=== PATIENT | male | born 1970 | race Caucasian/White ===

== ENCOUNTER 2024-04-26 09:47 | Outpatient (CLI) | payer BC, SELFPAY ==
[2024-04-26 16:07] LABS: Alanine Aminotransferase 34 U/L (6-50); Albumin Level 4.3 g/dL (3.5-5.1); Alkaline Phosphatase 84 U/L (38-126); Anion Gap 7 mmol/L (4-12); Aspartate Amino Transferase 79 U/L (17-59); Bilirubin,Total 0.6 mg/dL (0.2-1.3); Blood Urea Nitrogen 22 mg/dL (9-20); Calcium 9.3 mg/dL (8.4-10.2); Carbon Dioxide 33 mmol/L (22-30); Chloride 102 mmol/L (98-107); Cholesterol 172 mg/dL (0-200); Estimated Glomerular Filt Rate > 60; Glucose 94 mg/dL (65-110); HDL Direct 39 mg/dL; Potassium 4.3 mmol/L (3.4-5.0); Sodium 142 mmol/L (137-145); Triglycerides 139 mg/dL (<150)
[2024-04-26 16:18] LABS: LDL Cholesterol Direct 106 mg/dL
[2024-04-26 16:37] LABS: Prostate Specific Antigen 2.7 ng/mL (< OR = 4.0)
[2024-04-26 18:09] LABS: Hemoglobin A1C 5.7 % (<5.7)
== END 2024-04-26 09:48 | disposition home or self-care (01) ==
PROVIDERS: PCP Family Medicine; Visit Provider Family Medicine
DX: E78.2 Mixed hyperlipidemia (principal)
CPT/HCPCS: 36415; 80053; 80061; 83036; 84153; 84443

== ENCOUNTER 2024-04-27 14:50 | Outpatient (CLI) | payer BC, SELFPAY ==
--- NOTE | ~2024-04-27 | CT_ITS ---
EXAMINATION:CT lung screening DATE: 04/27/2024 15:02 INDICATION: Personal history of nicotine dependence. Smoker who quit 10 years ago with 35 pack year h istory. TECHNIQUE: Computed tomography (CT) of the chest was performed without intravenous contrast. Automate d exposure control and iterative reconstruction technique were employed. The dose-length product (DLP ) was 284.16 mGy-cm. COMPARISON: None. FINDINGS: Calcified pulmonary nodules and calcified hilar mediastinal lymph nodes are consistent with old granulomatous disease. There is mild atelectasis bilaterally. No pleural effusion. The heart siz e is normal. There are coronary artery calcifications. No pericardial effusion. Calcifications in the spleen are consistent with old granulomatous disease. There is mild thoracic spondylosis. There is m ild chronic anterior wedging of multiple lower thoracic vertebral bodies. IMPRESSION: 1. Lung-RADS category 1: Negative. Continue annual screening with noncontrast low-dose chest CT in 12 months. Reviewed, dictated and finalized at location E. IMPRESSION: 1. Lung-RADS category 1: Negative. Continue annual screening with noncontrast l ow-dose chest CT in 12 months.
== END 2024-04-27 14:51 ==
PROVIDERS: PCP Family Medicine; Visit Provider Family Medicine
DX: Z12.2 Encounter for screening for malignant neoplasm of respiratory organs (principal); Z87.891 Personal history of nicotine dependence
CPT/HCPCS: 71271

== ENCOUNTER 2024-07-10 10:57 | Outpatient (CLI) | payer BC, SELFPAY ==
[2024-07-10 13:13] LABS: Alanine Aminotransferase 34 U/L (6-50); Albumin Level 4.1 g/dL (3.5-5.1); Alkaline Phosphatase 90 U/L (38-126); Anion Gap 7 mmol/L (4-12); Aspartate Amino Transferase 65 U/L (17-59); Bilirubin,Total 0.4 mg/dL (0.2-1.3); Blood Urea Nitrogen 18 mg/dL (9-20); Calcium 8.9 mg/dL (8.4-10.2); Carbon Dioxide 33 mmol/L (22-30); Chloride 100 mmol/L (98-107); Estimated Glomerular Filt Rate > 60; Glucose 109 mg/dL (65-110); Potassium 4.1 mmol/L (3.4-5.0); Sodium 140 mmol/L (137-145)
[2024-07-10 15:57] LABS: Hepatitis B Surface Antigen Negative (Negative)
[2024-07-10 16:02] LABS: HAV RESULT Negative (Negative); Hepatitis B Core IgM Result Negative (Negative)
[2024-07-10 16:14] LABS: Hepatitis C Virus Antibody Negative (Negative)
== END 2024-07-10 10:58 | disposition home or self-care (01) ==
LOC: ANHGOSHLAB 10:59
PROVIDERS: PCP Family Medicine; Visit Provider Family Medicine
DX: R74.8 Abnormal levels of other serum enzymes (principal)
CPT/HCPCS: 36415; 80053; 80074

== ENCOUNTER 2024-08-29 09:45 | Outpatient (CLI) | payer BC, SELFPAY ==
--- NOTE | 2024-09-17 11:44 | P.SLEEP_ITS ---
Sleep Study Date of Study: 08/29/24 Ordering Provider: Caitlyn Joaquin DO Interpreting Physician: Caitlyn Joaquin DO Sleep Study Type: Split Polysomnogram Height: 1.78 m Weight: 117.48 kg Body Mass Index: 37.1 Neck Circumference (inches): 18 [place]: 5 Reason for Sleep Study The patient had a PSG on 10/14/2009 at [facility] that showed an overall AHI of 10.9 with desaturation down to 81%. He had a PAP Titration on 07/16/2011 but no optimal pressure was found due to poor sleep efficiency. He had a repeat PAP Titration on 08/27/2011 where the optimal pressure of 8 cm H2O. The patient states that his machine eventually stopped working as well so he started using a CPAP machine from his neighbor. His neighbor's machine was set to AutoPAP 10-20 cm H2O with EPR of 3. His compliance data shows a residual AHI of 3.9 with mostly centrals. The patient feels as though the pressure is too high. Sleep History The patient is a 54-year-old male with obstructive sleep apnea that had a sleep study ordered to requalify for CPAP. The patient rarely awakens from sleep short of breath. He rarely awakens at night with heartburn, belching or cough. He constantly snores and is frequently loud enough that others complain. He occasionally has trouble sleeping when he has a cold. He occasionally wakes up gasping for air throughout the night. He frequently has breathing problems at night observed by himself or others. He rarely sweats excessively at night. He rarely has heart palpitations or irregular heartbeats during the night. He rarely falls asleep during the day and rarely falls asleep while driving. He denies sleep paralysis and cataplexy. He denies having trouble at school or work due to sleepiness. He occasionally experiences vivid dreamlike scenes upon awakening or falling asleep. He denies feeling afraid of going to sleep. He rarely has nightmares. He occasionally remembers his dreams. He rarely has thoughts racing through his mind. He rarely feels sad, depressed or anxious. He rarely has muscular tension. He rarely notices parts of his body jerk. He occasionally kicks during the night. He occasionally has crawling and aching feelings in his legs and occasionally has leg pain during the night. He rarely grinds his teeth during sleep and never awakens with morning jaw pain. He is rarely bothered by pain during the day and rarely awakened by pain during the night. He rarely wakes up feeling stiff in the morning. He rarely wakes up with sore or achy muscles. He occasionally wakes up with pain in the neck, spine and other joints. He goes to bed 8:00 a.m. on weekdays and at 2:00 a.m. on the weekends. It takes him 5 minutes to fall asleep. He wakes up twice throughout the night to urinate and get a drink. He is able to fall back asleep within a few minutes. He wakes up at 3:00 p.m. on weekdays and at 10:00 a.m. on the weekends. He typically gets 6-8 hours of sleep per night. He will stay in bed for a few minutes after waking up in the morning. He currently lives with his and child. 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 The patient will switch to a day schedule on the weekends. He denies consuming any caffeinated beverages within 2 hours of bedtime. He denies engaging in physical exercise before bedtime. He will watch television before falling asleep. He denies taking naps in afternoon to evening. He consumes 2 caffeinated beverages per day. He is a former smoker. He consumes 3 alcoholic beverages per week. He denies recreational drug use. [facility] Surgical History Surgical History History of excision of pilonidal cyst Family History Family History Father Hypertension Alcohol abuse Grandparent Cerebrovascular accident Diabetes mellitus Social History Social History Smoking packs per day: 1 Smoking cigarettes per day: 20.0 Years smoked: 20 Smoking pack-years: 20.00 Smoking status: Former smoker Tobacco type: cigarettes Alcohol intake: current Drinks per week: 2 Current Housing: Decline to Answer Concerned About Future Housing: Decline to Answer Difficulty Paying Gas/Electric Bills: Decline to Answer Difficulty Paying for Meds: Decline to Answer Currently Unemployed: Decline to Answer Education: Decline to Answer Difficulty w/ Childcare or Family Care: Decline to Answer Living arrangements: with family Spiritual care concerns: No Medications Home Medications Medication Instructions Recorded Confirmed Type B-complex with vitamin C 1 cap PO DAILY 04/25/24 09/12/24 History aspirin 81 mg tablet,delayed 81 mg PO DAILY 04/25/24 09/12/24 History release (Adult Aspirin Regimen) cholecalciferol (vitamin D3) 125 125 mcg PO DAILY 04/25/24 09/12/24 History mcg (5,000 unit) capsule hydrochlorothiazide 12.5 mg capsule 12.5 mg PO DAILY 04/25/24 09/12/24 History xqxfvnbe-eh-gchnx 300 mcg-K 60 1 tablet PO DAILY 04/25/24 09/12/24 History mcg-lycop 600 mcg-lutein 300 mcg tablet (Centrum Silver Men) omega 4-ujf-dhu-fish oil 100 1 cap PO DAILY 04/25/24 09/12/24 History mg-160 mg-1,000 mg capsule (Fish Oil) sildenafil 100 mg tablet 100 mg PO DAILY PRN Erectile 04/25/24 09/12/24 History Dysfunction paroxetine HCl 10 mg tablet (Paxil) 10 mg PO DAILY #90 tabs 08/15/24 09/12/24 Rx simvastatin 40 mg tablet 40 mg PO DAILY #90 tabs 09/10/24 09/12/24 Rx Sleep Procedure A full night polysomnogram using the [employer]dtap multi-channel system recorded the standard physiologic parameters including EEG, EOG, submentalis EMG, anterior tibialis EMG, EKG, body position, nasal and oral airflow using nasal pressure sensor and thermistor.? Respiratory parameters of chest and abdominal movements were recorded with Respiratory Inductance Plethysmography belts. Oxygen saturation was recorded by pulse oximetry. Video monitoring was also performed. Sleep stages, periodic limb movements, and EEG arousals were scored in 30 second epochs according to the criteria of the AASM Scoring Manual. The Apnea-Hypopnea Index was calculated using CMS guidelines for definition of hypopnea with 4% O2 desaturations while scoring respiratory events. Sleep Architecture During the diagnostic portion of the study, the total recording time was 136.7 minutes. The total sleep time was 128.5 minutes. Sleep latency was 1.1 minutes.? REM sleep did not occur on this portion of the study. Sleep Efficiency was 94.0%. The patient had 5 awakenings for an awakening index of 2.3. Wake after sleep onset time was 7.0 minutes. The patient spent 26.0 minutes, 20.2% of total sleep time in Stage N1. The patient spent 102.5 minutes, 79.8% in Stage N2. The patient spent 0.0 minutes, 0.0% in Stage N3. The patient spent 0.0 minutes, 0.0% in Stage REM sleep. At 12:01:46 AM the patient was placed on PAP treatment and was titrated at p ressures ranging from 5 cm H20 up to 17/12 cm H20 with a back up rate of 10 breaths/min. During the treatment portion of the study, the total recording time was 421.1 minutes.? The total sleep time was 396.5 minutes. Sleep latency was 1.5 minutes. REM latency was 2.5 minutes. Sleep Efficiency was 94.2%. Wake after Sleep Onset time was 23.5 minutes. The patient spent 50.0 minutes, 12.6% of total sleep time in Stage N1. The patient spent 268.0 minutes, 67.6% in Stage N2. The patient spent 0.0 minutes, 0.0% in Stage N3. The patient spent 78.5 minutes, 19.8% in Stage REM. Respiratory Analysis During the diagnostic portion of the study, the patient had 44 hypopneas, 28 obstructive apneas, 19 mixed apneas, and 2 central apneas for an overall Apnea Hypopnea Index of 43.4 events per hour. The REM Apnea Hypopnea Index was 0. The NREM Apnea Hypopnea Index was 43.4. The patient had a Central Apnea Hypopnea Index of 0.9. There was no evidence of Bridger-Irby Respirations. During the treatment portion of the study, the patient had 97 hypopneas, 1 obstructive apnea and 68 central apneas for an overall Apnea Hypopnea Index of 25.1 events per hour. The REM Apnea Hypopnea Index was 10.7. The NREM Apnea Hypopnea Index was 28.7. The patient had a Central Apnea Hypopnea Index of 10.3. The patient developed Rbidger-Irby Respirations during the titration portion of the study. The cycle length was 48.4 seconds. The circulation time was 23.5 seconds. The patient was started on CPAP 5 cm H2O and titrated to BPAP 17/12 cm H2O with back-up rate of 10 breaths/min. A back-up rate was added when the patient was titrated to BPAP 12/6 cm H2O due to an increase in central apneas. The patient was able to fall asleep starting CPAP 5 cm H2O. The patient was able to achieve REM sleep starting CPAP 5 cm H2O. The patient was able to achieve a residual AHI less than 5 with both NREM and REM sleep on CPAP 5 cm H2O. On CPAP 5 cm H2O, the patient spent 16 minutes in NREM and 23.5 minutes in REM with 3 hypopneas, resulting in an AHI of 4.6. The patient had a sleep efficiency of 95.2% on this pressure setting. When the patient was titrated to 7 cm H2O, he started to develop central apneas. The frequency of central apneas increased as the pressure was increased. When the patient was switched to BPAP, the central apneas increased. Arousals During the diagnostic portion of the study, there were a total of 108 arousals for an arousal index of 50.4.? There were 50 respiratory arousals for an index o f 23.3. There were 18 periodic limb movement arousals for an index of 8.4.? There were 4 isolated limb movement arousals for an index of 1.9. There were 36 spontaneous arousals for an index of 16.8. During the treatment portion of the study, there were a total of 116 arousals for an index of 17.6.? There were 8 respiratory arousals for an index of 1.2. There were 6 periodic limb movement arousals for an index of 0.9.? There were 19 isolated limb movement arousals for an index of 2.9. There were 83 spontaneous arousals for an index of 12.6. Periodic Limb Movements During the diagnostic portion of the study, the patient had 11 isolated limb movements with an index of 5.1. The patient had 69 periodic limb movements with an index of 32.2, which is elevated (normal < 15). The patient had a total of 80 limb movements with a total limb movement index of 37.4. During the treatment portion of the study, the patient had 36 isolated limb movements with an index of 5.4. The patient had 21 periodic limb movements with an index of 3.2. The patient had a total of 57 limb movements with a total limb movement index of 8.6. Oximetry Data During the diagnostic portion of the study, the patient had an average oxygen saturation of 93.3% in wake with a minimum oxygen saturation of 87% and a maximum oxygen saturation of 97%. The patient had an average oxygen saturation of 92.0% in sleep with a minimum oxygen saturation of 82.0% and a maximum oxygen saturation of 98.0%. The patient had 92 oxygen desaturations resulting in an Oxygen Desaturation Index of 43.0. The patient spent 7 minutes, 5.1% of total sleep time with an oxygen saturation less than 88%. During the treatment portion of the study, the patient had an average oxygen saturation of 93.6% in wake with a minimum oxygen saturation of 84.0% and a maximum oxygen saturation of 97.0%. The patient had an average oxygen saturation of 93.3% in sleep with a minimum oxygen saturation of 86.0% and a maximum oxygen saturation of 98.0%. The patient had 168 oxygen desaturations resulting in an Oxygen Desaturation Index of 25.4. The patient spent 2.5 minutes, 0.6% of total sleep time with an oxygen saturation less than 88%. Snoring Profile Moderate to loud snoring was present continuously during the baseline portion of the study. The patient's snoring resolved once he was started on PAP therapy. Cardiac Profile The EKG lead showed normal sinus rhythm. No arrhythmias or PVCs were seen. During the diagnostic portion of the study, the average pulse rate was 64.1 bpm.? The minimum pulse rate was 54.0 bpm. The maximum pulse rate was 78.0 bpm. During the treatment portion of the study, the average pulse rate was 60.1 bpm.? The minimum pulse rate was 52.0 bpm. The maximum pulse rate was 78.0 bpm. EEG Profile No signs of seizure activity seen. Assessment and Plan Assessment and Plan (1) DOLORES (obstructive sleep apnea): Code(s): G47.33 - Obstructive sleep apnea (adult) (pediatric) Status: Acute Assessment and Plan: In the diagnostic portion of the study, the patient had AHI 43.4 with desaturation down to 82%. This is consistent with severe sleep apnea. The patient was started on CPAP 5 cm H2O and titrated to BPAP 17/12 cm H2O with back-up rate of 10 breaths/min. I recommend that the patient be prescribed R esmed CPAP 7 cm H2O, size medium Resmed AirFit P30i nasal pillows, CPAP filters/tubing and heated humidity. This should be used with all episodes of sleep.? Compliance should be reviewed within 31-90 days of starting therapy for usage greater than 4 hours per night greater than 70% of the nights. The patient should be asked about symptoms such as?excessive daytime sleepiness, quality of sleep, decreased nocturia, increased?mental functioning such as memory, mood, and concentration. Data The data obtained during this sleep study is adequate for interpretation. Certification This sleep study has been reviewed by a board certified sleep medicine physician.
[2024-09-17 13:24] VITALS: BMI 37.1
== END 2024-08-30 07:30 | disposition home or self-care (01) ==
PROVIDERS: PCP Family Medicine; Visit Provider Family Medicine
DX: G47.33 Obstructive sleep apnea (adult) (pediatric) (principal)
CPT/HCPCS: 95811

== ENCOUNTER 2024-10-17 11:31 | Outpatient (CLI) | payer BC, SELFPAY ==
[2024-10-17 12:53] LABS: Alanine Aminotransferase 159 U/L (6-50); Albumin Level 3.9 g/dL (3.5-5.1); Alkaline Phosphatase 98 U/L (38-126); Anion Gap 4 mmol/L (4-12); Aspartate Amino Transferase 130 U/L (17-59); Bilirubin,Total 0.6 mg/dL (0.2-1.3); Blood Urea Nitrogen 18 mg/dL (9-20); Calcium 8.7 mg/dL (8.4-10.2); Carbon Dioxide 36 mmol/L (22-30); Chloride 102 mmol/L (98-107); Estimated Glomerular Filt Rate > 60; Glucose 97 mg/dL (65-110); Potassium 3.3 mmol/L (3.4-5.0); Sodium 142 mmol/L (137-145)
== END 2024-10-17 11:32 | disposition home or self-care (01) ==
PROVIDERS: PCP Family Medicine; Visit Provider Family Medicine
DX: R74.8 Abnormal levels of other serum enzymes (principal)
CPT/HCPCS: 36415; 80053

== ENCOUNTER 2024-11-13 11:27 | Outpatient (CLI) | payer BC, SELFPAY ==
[2024-11-13 12:26] LABS: Alanine Aminotransferase 27 U/L (6-50); Albumin Level 4.1 g/dL (3.5-5.1); Alkaline Phosphatase 82 U/L (38-126); Anion Gap 1 mmol/L (4-12); Aspartate Amino Transferase 28 U/L (17-59); Bilirubin,Total 0.8 mg/dL (0.2-1.3); Blood Urea Nitrogen 16 mg/dL (9-20); Calcium 9.2 mg/dL (8.4-10.2); Carbon Dioxide 33 mmol/L (22-30); Chloride 106 mmol/L (98-107); Cholesterol 280 mg/dL (0-200); Estimated Glomerular Filt Rate > 60; Glucose 95 mg/dL (65-110); HDL Direct 39 mg/dL; Sodium 140 mmol/L (137-145); Triglycerides 175 mg/dL (<150)
[2024-11-13 12:37] LABS: LDL Cholesterol Direct 181 mg/dL
[2024-11-13 13:53] LABS: Hepatitis B Surface Antigen Negative (Negative)
[2024-11-13 13:59] LABS: HAV RESULT Negative (Negative); Hepatitis B Core IgM Result Negative (Negative)
[2024-11-13 14:10] LABS: Hepatitis C Virus Antibody Negative (Negative)
== END 2024-11-13 11:28 | disposition home or self-care (01) ==
LOC: ANHGOSHLAB 11:28
PROVIDERS: PCP Family Medicine; Visit Provider Family Medicine
DX: E78.5 Hyperlipidemia, unspecified (principal); R74.8 Abnormal levels of other serum enzymes; E87.6 Hypokalemia
CPT/HCPCS: 36415; 80053; 80061; 80074

== ENCOUNTER 2025-02-19 09:19 | Outpatient (CLI) | payer BC, SELFPAY ==
--- OUTSIDE RECORDS SUMMARY | 2025-02-19 10:07 | XMS_ITS | Data Portability ---
Author Organization [facility] Main Office Address [address] [place] [address] Assessment No assessment recorded. Plan of Treatment Reminders Order Date Submit Date Provider Last Modified By Organization Details Last Modified Time Details Appointments None recorded. Lab PSA, serum or plasma 2022 023 CARMEN Not available 3 02:44:45 BMP, serum or plasma 2022 023 CARMEN Not available 3 19:30:24 glycohemogl obin, total, blood 2022 023 CARMEN Not available 3 20:01:12 lipid panel, serum 2022 023 CARMEN Not available 3 19:30:29 hepatic function panel, serum 2022 023 CARMEN Not available 3 19:30:34 CBC w/ auto diff 2022 023 CARMEN Not available 3 19:39:13 Referral gastroenter ologist referral 2022 023 [email or web address] 3 Gary nielson MD, [address], [facility] [address], [place], [address], 3 10:48:30 Procedures None recorded. Surgeries None recorded. Imaging None recorded. Medication Orders tadalafil 20 mg tablet 2022 023 [place] [facility][id number], [address], [place], [place], [id number], 3 09:02:36 phentermine 37.5 mg tablet 2022 023 [facility] #[id number], [address], [place], [place], [id number], 3 09:02:37 hydrochloro thiazide 12.5 mg tablet 2022 023 [facility] #[id number], [address], [place], [place], [id number], 3 11:09:34 simvastatin 40 mg tablet 2022 023 [facility] #[id number], [address], [place], [place], [id number], 3 11:07:10 Patient TargetsNo targets recorded. Patient InstructionsNo instructions recorded. Reason for Referral Steam [employer] Referral for Screening for malignant neoplasm of colon Referring Physician: Nasrin Polanco, Family Medicine, Encounter Date: 06/22/2023 Results Created Date Observation Date Name Description Value Unit Range Abnormal Flag Note LastModifiedBy Organization Detail LastModifiedTime 11/02/20 21 11/02/2021 CBC/C OMPLE TE BLD COUNT W/DIF F white blood cells 7.3 x10'3 /uL 4.2-10 .8 Not Available [facility] (Lab) [address] [place], [address], 11/02/2021 19:56:47 11/02/20 21 11/02/2021 CBC/C OMPLE TE BLD COUNT W/DIF F red blood cells 5.27 x10'6 /uL 4.10-5 .80 Not Available [facility] (Lab) [address] [place], [address], 11/02/2021 19:56:47 11/02/20 21 11/02/2021 CBC/C OMPLE TE BLD COUNT W/DIF F hemoglobin 15.0 g/dL 13.2-1 7.0 Not Available [facility] (Lab) [address] [place], [address], 11/02/2021 19:56:47 11/02/20 21 11/02/2021 CBC/C OMPLE TE BLD COUNT W/DIF F hematocrit 46.2 % 39.3-5 0.0 Not Available [facility] (Lab) [address] [place], [address], 11/02/2021 19:56:47 11/02/20 21 11/02/2021 CBC/C OMPLE TE BLD COUNT W/DIF F mean red cell volume 87.7 fL 80.0-9 7.0 Not Available [facility] (Lab) [address] [place], [address], 11/02/2021 19:56:47 11/02/20 21 11/02/2021 CBC/C OMPLE TE BLD COUNT W/DIF F mean red cell hemoglobin 28.5 pg 27.0-3 3.0 Not Available [facility] (Lab) [address] [place], [address], 11/02/2021 19:56:47 11/02/20 21 11/02/2021 CBC/C OMPLE TE BLD COUNT W/DIF F mean RBC HGB concentratio n 32.5 g/dL 31.0-3 6.0 Not Available [facility] (Lab) [address] [place], [address], 11/02/2021 19:56:47 11/02/20 21 11/02/2021 CBC/C OMPLE TE BLD COUNT W/DIF F red cell distribution width 12.5 % 11.8-1 5.5 Not Available [facility] (Lab) [address] [place], [address], 11/02/2021 19:56:47 11/02/20 21 11/02/2021 CBC/C OMPLE TE BLD COUNT W/DIF F platelets 130 x10'3 /uL 150-40 0 low Not Available [facility] (Lab) [address] [place], [address], 11/02/2021 19:56:47 11/02/20 21 11/02/2021 CBC/C OMPLE TE BLD COUNT W/DIF F mean platelet volume 12.5 fL 9.0-12 .4 high Not Available [facility] (Lab) [address] [place], [address], 11/02/2021 19:56:47 11/02/2011/02/2021 CBC/C OMPLE TE BLD COUNT W/DIF F neutrophils 54.2 % 39.0-7 2.0 Not Available [facility] (Lab) [address] [place], [address], 11/02/2021 19:56:47 11/02/20 21 11/02/2021 CBC/C OMPLE TE BLD COUNT W/DIF F lymphocytes 34.0 % 16.0-4 7.0 Not Available [facility] (Lab) [address] [place], [address], 11/02/2021 19:56:47 11/02/2011/02/2021 CBC/C OMPLE TE BLD COUNT W/DIF F monocytes 8.3 % 5.0-12 .0 Not Available [facility] (Lab) [address] [place], [address], 11/02/2021 19:56:47 11/02/20 21 11/02/2021 CBC/C OMPLE TE BLD COUNT W/DIF F eosinophils 2.6 % 1.0-7. 0 Not Available [facility] (Lab) [address] [place], [address], 11/02/2021 19:56:47 11/02/20 21 11/02/2021 CBC/C OMPLE TE BLD COUNT W/DIF F basophils 0.6 % 0.0-2. 0 Not Available [facility] (Lab) [address] [place], [address], 11/02/2021 19:56:47 11/02/20 21 11/02/2021 CBC/C OMPLE TE BLD COUNT W/DIF F immature granulocytes 0.3 % 0.00-0 .50 Not Available [facility] (Lab) [address] [place], [address], 11/02/2021 19:56:47 11/02/20 21 11/02/2021 CBC/C OMPLE TE BLD COUNT W/DIF F neutrophils, absolute count 3.94 x10'3 /uL 1.5-8. 0 Not Available [facility] (Lab) [address] [place], [address], 11/02/2021 19:56:47 11/02/20 21 11/02/2021 CBC/C OMPLE TE BLD COUNT W/DIF F lymphocytes, absolute count 2.47 x10'3 /uL 1.07-3 .43 Not Available [facility] (Lab) [address] [place], [address], 11/02/2021 19:56:47 11/02/20 21 11/02/2021 CBC/C OMPLE TE BLD COUNT W/DIF F monocytes, absolute count 0.60 x10'3 /uL 0.29-0 .99 Not Available [facility] (Lab) [address] [place], [address], 11/02/2021 19:56:47 11/02/20 21 11/02/2021 CBC/C OMPLE TE BLD COUNT W/DIF F eosinophils, absolute count 0.19 x10'3 /uL 0.02-0 .53 Not Available [facility] (Lab) [address] [place], [address], 11/02/2021 19:56:47 11/02/20 21 11/02/2021 CBC/C OMPLE TE BLD COUNT W/DIF F basophils, absolute count 0.04 x10'3 /uL 0.01-0 .08 Not Available [facility] (Lab) [address] [place], [address], 11/02/2021 19:56:47 11/02/20 21 11/02/2021 CBC/C OMPLE TE BLD COUNT W/DIF F immature granulocytes ,absolute 0.02 x10'3 /uL 0.00-0 .05 Not Available [facility] (Lab) [address] [place], [address], 11/02/2021 19:56:47 11/02/20 21 11/02/2021 CBC/C OMPLE TE BLD COUNT W/DIF F nucleated red blood cells 0.0 % -0 Not Available [facility] (Lab) [address] [place], [address], 11/02/2021 19:56:47 11/02/20 21 11/02/2021 CBC/C OMPLE TE BLD COUNT W/DIF F NRBC# 0.00 x10'3 /uL Not Available [facility] (Lab) [address] [place], [address], 11/02/2021 19:56:47 06/22/20 23 06/22/2023 BASIC METAB OLIC PANEL sodium 138 mmol/ L 137-14 5 Not Available [facility] (Lab) [address] [place], [address], 06/22/2023 19:30:24 06/22/20 23 06/22/2023 BASIC METAB OLIC PANEL potassium 3.6 mmol/ L 3.5-5. 1 Not Available [facility] (Lab) [address] [place], [address], 06/22/2023 19:30:24 06/22/20 23 06/22/2023 BASIC METAB OLIC PANEL chloride 101 mmol/ L 98-107 Not Available [facility] (Lab) [address] [place], [address], 06/22/2023 19:30:24 06/22/20 23 06/22/2023 BASIC METAB OLIC PANEL carbon dioxide 30 mmol/ L 22-30 Not Available [facility] (Lab) [address] [place], [address], 06/22/2023 19:30:24 06/22/20 23 06/22/2023 BASIC METAB OLIC PANEL anion gap 10.6 mmol/ L 14-22 low Not Available [facility] (Lab) [address] [place], [address], 06/22/2023 19:30:24 06/22/20 23 06/22/2023 BASIC METAB OLIC PANEL glucose 102 mg/dL 70-99 high Not Available [facility] (Lab) [address] [place], [address], 06/22/2023 19:30:24 06/22/20 23 06/22/2023 BASIC METAB OLIC PANEL BUN 20 mg/dL 8-19 high Not Available [facility] (Lab) [address] [place], [address], 06/22/2023 19:30:24 06/22/20 23 06/22/2023 BASIC METAB OLIC PANEL creatinine 0.87 mg/dL 0.66-1 .25 Not Available [facility] (Lab) [address] [place], [address], 06/22/2023 19:30:24 06/22/20 23 06/22/2023 BASIC METAB OLIC PANEL GFR >60 Refer ence Range : Leola ge GFR Healt hy Adult : >60 mL/mi n/1.7 3 m2 Chron ic Kidne y Disea se: 15-60 mL/mi n/1.7 3 m2 Kidne y Failu re: <15/m L/min /1.73 m2 www.n iddk. nih.g ov The MDRD study equat ion has not been valid ated in child lynda <18 years of age; pregn ant women ; the elder ly >85 years of age; or in some racia l or ethni c subgr oups, such as Hispa nics. Outsi de the valid ated remedios eters , estim ated GFR is less accur ate, requi ring clini rubén judgm ent on a case- by-ca se basis . Clini rubén inter preta tion for other races and ages must be made by the clini michelle. The MDRD study equat ion has not been valid ated for the evalu ation of serum creat inine relat ed to nutri skye l statu s or medic ation usage . For perso ns <18 years of age, a pedia tric GFR calcu lator is avail able on the [facility] websi te: https ://tim w.jud justin.o rg/pr ofess ional s/kdo qi/gf r_cal culat or Not Available [facility] (Lab) [address] [place], [address], 06/22/2023 19:30:24 06/22/2006/22/2023 BASIC METAB OLIC PANEL calcium 9.3 mg/dL 8.4-10 .2 Not Available [facility] (Lab) [address] [place], [address], 06/22/2023 19:30:24 06/22/2006/22/2023 LIPID PANEL cholesterol 170 mg/dL 140-19 9 NIH LALIT NSUS RECOM MENDA TION FOR MICHAEL STERO L: ADULT CHILD LOW RISK: <200 <170 BORDE RLINE : <200- 239 ----- HIGH RISK: >240 >200 Not Available [facility] (Lab) [address] [place], [address], 06/22/2023 19:30:29 06/22/2006/22/2023 LIPID PANEL triglyceride s 131 mg/dL 0-150 NIH LALIT NSUS REPOR T RECOM MENDA TION FOR TRIGL YCERI NAIDA: ADULT CHILD LOW RISK: <150 ----- BODER LINE: 150-1 99 ----- HIGH RISK: >200 ----- Not Available [facility] (Lab) [address] [place], [address], 06/22/2023 19:30:29 06/22/2006/22/2023 LIPID PANEL HDL cholesterol 38 mg/dL 40- low Not Available [facility] (Lab) [address] [place], [address], 06/22/2023 19:30:29 06/22/20 23 06/22/2023 LIPID PANEL LDL cholesterol, calculated 106 mg/dL 0-130 NIH LALIT NSUS REPOR T RECOM MENDA TIONS FOR LDL: ADULT CHILD LOW RISK <130 <110 (OPTI MAL LDL) <100 ----- ELMA RLINE : 130-1 59 ----- HIGH RISK: >160 >130 A TRIGL YCERI DE RESUL T >400 INVAL IDATE S THE CALCU LATIO N FOR LDL FRACT IONAT ION - THE LDL RESUL T WILL NOT BE REPOR RAH. Not Available [facility] (Lab) [address] [place], [address], 06/22/2023 19:30:29 06/22/2006/22/2023 HEPAT IC/LI NONI PANEL alkaline phosphatase 92 U/L 38-126 Not Available [facility] (Lab) [address] [place], [address], 06/22/2023 19:30:34 06/22/20 23 06/22/2023 HEPAT IC/LI NONI PANEL alanine aminotransfe rase 28 U/L 0-50 Not Available [facility] (Lab) [address] [place], [address], 06/22/2023 19:30:34 06/22/20 23 06/22/2023 HEPAT IC/LI NONI PANEL aspartate aminotransfe rase 33 U/L 15-46 Not Available [facility] (Lab) [address] [place], [address], 06/22/2023 19:30:34 06/22/20 23 06/22/2023 HEPAT IC/LI NONI PANEL bilirubin, total 0.40 mg/dL 0.20-1 .30 Not Available [facility] (Lab) [address] [place], [address], 06/22/2023 19:30:34 06/22/20 23 06/22/2023 HEPAT IC/LI NONI PANEL bilirubin, conjugated (direct) 0.00 mg/dL 0.00-0 .30 Not Available [facility] (Lab) [address] [place], [address], 06/22/2023 19:30:34 06/22/20 23 06/22/2023 HEPAT IC/LI NONI PANEL biliurubin,u ncong. (indirect) 0.30 mg/dL 0.00-1 .1 Not Available [facility] (Lab) [address] [place], [address], 06/22/2023 19:30:34 06/22/20 23 06/22/2023 HEPAT IC/LI NONI PANEL total protein 7.5 g/dL 6.3-8. 2 Not Available [facility] (Lab) [address] [place], [address], 06/22/2023 19:30:34 06/22/20 23 06/22/2023 HEPAT IC/LI NONI PANEL albumin 4.5 g/dL 3.4-5. 0 Not Available [facility] (Lab) [address] [place], [address], 06/22/2023 19:30:34 06/22/20 23 06/22/2023 HEPAT IC/LI NONI PANEL globulin 3.0 g/dL 2.6-4. 2 Not Available [facility] (Lab) [address] [place], [address], 06/22/2023 19:30:34 06/22/20 23 06/22/2023 HEPAT IC/LI NONI PANEL A/G ratio 1.5 ratio 1.0-2. 0 Not Available [facility] (Lab) [address] [place], [address], 06/22/2023 19:30:34 06/22/20 23 06/22/2023 CBC/C OMPLE TE BLD COUNT W/DIF F white blood cells 8.8 x10'3 /uL 4.2-10 .8 Not Available [facility] (Lab) [address] [place], [address], 06/22/2023 19:39:12 06/22/20 23 06/22/2023 CBC/C OMPLE TE BLD COUNT W/DIF F red blood cells 5.39 x10'6 /uL 4.10-5 .80 Not Available [facility] (Lab) [address] [place] [place], [address], 06/22/2023 19:39:12 06/22/20 23 06/22/2023 CBC/C OMPLE TE BLD COUNT W/DIF F hemoglobin 15.5 g/dL 13.2-1 7.0 Not Available [facility] (Lab) [address] [place], [address], 06/22/2023 19:39:12 06/22/20 23 06/22/2023 CBC/C OMPLE TE BLD COUNT W/DIF F hematocrit 47.1 % 39.3-5 0.0 Not Available [facility] (Lab) [address] [place], [address], 06/22/2023 19:39:12 06/22/20 23 06/22/2023 CBC/C OMPLE TE BLD COUNT W/DIF F mean red cell volume 87.4 fL 80.0-9 7.0 Not Available [facility] (Lab) [address] [place], [address], 06/22/2023 19:39:12 06/22/20 23 06/22/2023 CBC/C OMPLE TE BLD COUNT W/DIF F mean red cell hemoglobin 28.8 pg 27.0-3 3.0 Not Available [facility] (Lab) [address] [place], [address], 06/22/2023 19:39:12 06/22/2006/22/2023 CBC/C OMPLE TE BLD COUNT W/DIF F mean RBC HGB concentratio n 32.9 g/dL 31.0-3 6.0 Not Available [facility] (Lab) [address] [place], [address], 06/22/2023 19:39:12 06/22/2006/22/2023 CBC/C OMPLE TE BLD COUNT W/DIF F red cell distribution width 12.8 % 11.8-1 5.5 Not Available [facility] (Lab) [address] [place], [address], 06/22/2023 19:39:12 06/22/2006/22/2023 CBC/C OMPLE TE BLD COUNT W/DIF F platelets 139 x10'3 /uL 150-40 0 low Not Available [facility] (Lab) [address] [place], [address], 06/22/2023 19:39:12 06/22/2006/22/2023 CBC/C OMPLE TE BLD COUNT W/DIF F mean platelet volume 12.8 fL 9.0-12 .4 high Not Available [facility] (Lab) [address] [place], [address], 06/22/2023 19:39:12 06/22/2006/22/2023 CBC/C OMPLE TE BLD COUNT W/DIF F neutrophils 54.0 % 39.0-7 2.0 Not Available [facility] (Lab) [address] [place], [address], 06/22/2023 19:39:12 06/22/2006/22/2023 CBC/C OMPLE TE BLD COUNT W/DIF F lymphocytes 36.0 % 16.0-4 7.0 Not Available [facility] (Lab) [address] [place], [address], 06/22/2023 19:39:12 06/22/2006/22/2023 CBC/C OMPLE TE BLD COUNT W/DIF F monocytes 6.9 % 5.0-12 .0 Not Available [facility] (Lab) [address] [place], [address], 06/22/2023 19:39:12 06/22/2006/22/2023 CBC/C OMPLE TE BLD COUNT W/DIF F eosinophils 2.4 % 1.0-7. 0 Not Available [facility] (Lab) [address] [place], [address], 06/22/2023 19:39:12 06/22/2006/22/2023 CBC/C OMPLE TE BLD COUNT W/DIF F basophils 0.5 % 0.0-2. 0 Not Available [facility] (Lab) [address] [place], [address], 06/22/2023 19:39:12 06/22/2006/22/2023 CBC/C OMPLE TE BLD COUNT W/DIF F immature granulocytes 0.2 % 0.00-0 .50 Not Available [facility] (Lab) [address] [place], [address], 06/22/2023 19:39:12 06/22/2006/22/2023 CBC/C OMPLE TE BLD COUNT W/DIF F neutrophils, absolute count 4.76 x10'3 /uL 1.5-8. 0 Not Available [facility] (Lab) [address] [place], [address], 06/22/2023 19:39:12 06/22/20 23 06/22/2023 CBC/C OMPLE TE BLD COUNT W/DIF F lymphocytes, absolute count 3.17 x10'3 /uL 1.07-3 .43 Not Available [facility] (Lab) [address] [place], [address], 06/22/2023 19:39:12 06/22/2006/22/2023 CBC/C OMPLE TE BLD COUNT W/DIF F monocytes, absolute count 0.61 x10'3 /uL 0.29-0 .99 Not Available [facility] (Lab) [address] [place], [address], 06/22/2023 19:39:12 06/22/2006/22/2023 CBC/C OMPLE TE BLD COUNT W/DIF F eosinophils, absolute count 0.21 x10'3 /uL 0.02-0 .53 Not Available [facility] (Lab) [address] [place], [address], 06/22/2023 19:39:12 06/22/2006/22/2023 CBC/C OMPLE TE BLD COUNT W/DIF F basophils, absolute count 0.04 x10'3 /uL 0.01-0 .08 Not Available [facility] (Lab) [address] [place], [address], 06/22/2023 19:39:12 06/22/2006/22/2023 CBC/C OMPLE TE BLD COUNT W/DIF F immature granulocytes ,absolute 0.02 x10'3 /uL 0.00-0 .05 Not Available [facility] (Lab) [address] [place], [address], 06/22/2023 19:39:12 06/22/20 23 06/22/2023 CBC/C OMPLE TE BLD COUNT W/DIF F nucleated red blood cells 0.2 % -0 high Not Available [facility] (Lab) [address] [place], [address], 06/22/2023 19:39:12 06/22/20 23 06/22/2023 CBC/C OMPLE TE BLD COUNT W/DIF F NRBC# 0.02 x10'3 /uL Not Available [facility] (Lab) [address] [place], [address], 06/22/2023 19:39:12 06/22/20 23 06/22/2023 PSA SCREE N PSA medicare screen 1.53 NG/mL 0.00-4 .00 Not Available [facility] (Lab) [address] [place], [address], 06/22/2023 20:00:23 06/22/2006/22/2023 HEMOG LOBIN A1C HA1C 5.9 % 4.0-6. 0 Diabe bobby Scree senthil Crite rissa: <5.7% Consi stent with absen ce of diabe obbby 5.7-6 .4% Consi stent with incre ased risk for diabe bobby (pred iabet es) >OR=6 .5% Consi stent with diabe bobby REFER ENCE: Diabe bobby Care 2016, 39(Stokes ppl.1 ):s13 -s22 Not Available [facility] (Lab) [address] [place], [address], 06/22/2023 20:01:12 01/16/20 22 01/14/2022 CT, coron macie calci um score No observ ation record ed. [id number] [facility] Radiology [address], [place], [address], 01/12/2023 22:45:32 08/08/20 23 rajinder nuous posit galilea airwa y press ure venti latio n (CPAP ), initi ation and manag ement (PROC ) No observ ation record ed. [email or web address] Not Available 2023 09:05:21 Result Notes None recorded. Problems Name Problem SNOMED Code Status Onset Date Resolution Date Notes Provider Name and Address Organization Details Recorded Time Hyperchole sterolemia 69192761 Completed 202002/11/2021 Not Available [facility] 3 22:44:14 Hyperlipid emia 56529799 Active 2020 Not Available [facility] 3 22:44:14 Obstructiv e sleep apnea syndrome 53198582 Active 2020 cpap Not Available [facility] 3 22:44:14 Edema of lower extremity 465768615 Active 2022 KIT Peterson [address], [place], [address] , [employer] 3 11:07:28 Obesity 025627440 Active 2022 KIT Peterson [address], [place], [address] , [employer] [facility] [employer] 3 11:09:36 Elevated blood-pres sure reading without diagnosis of hypertensi on 423705532 Active 2022 KIT Peterson [address], [place], [address] , [employer] 3 11:12:23 Adult health examinatio n Active 2022 Nasrin Polanco MD [address], [place], [address] , [employer] [facility] [employer] 3 08:45:19 Erectile dysfunctio n 570640742 Active 2022 Nasrin Polanco MD [address], [place], [address] , [facility] [employer] [facility] 3 08:56:16 Prediabete s 645407484 Active 2022 a1c 5.9 06/2023 Nasrin Polanco MD [address], [place], [address] , [facility] [employer] [facility] [employer] [facility] 3 08:00:25 Problem Notes None recorded. Procedures Surgical History Date Name Laterality Status Provider Name and Address Organization Details Recorded Time Vasectomy completed Not Available [facility] 0 01/12/2023 22:43:12 Imaging Results Imaging Date Name Status LastModified by Organiz ation Details LastModified Time 01/14/2022 CT, coronary calcium score completed [id number] [facility] Radiology [address] [facility], [place], [address], 01/12/2023 22:45:32 08/08/2023 continuous positive airway pressure ventilation (CPAP), initiation and management (PROC) completed Information not available 03/18/2024 09:05:21 Procedure Notes None recorded. Medical Equipment None Reported. Allergies No known drug allergies Medications Name Sig Start Date Stop Date Status Note LastModified by Organization Details LastModified Time furosemide 40 mg tablet TAKE 1/2-1 TABLET BY MOUTH EVERY DAY NEEDED FOR EDEMA 05/16 completed Not Available Not Available Not Available phentermine 37.5 mg tablet TAKE 1 TABLET BY MOUTH EVERY DAY 2023 active Not Available Not Available Not Avai lable sildenafil 100 mg tablet TAKE 1 TABLET BY MOUTH EVERY DAY NEEDED active Not Available Not Available No t Available simvastatin 40 mg tablet TAKE 1 TABLET BY MOUTH EVERY DAY active Not Available Not Available No t Available simvastatin 20 mg tablet TAKE 1 TABLET BY MOUTH DAILY 05/16 completed Not Available Not Available Not Available tadalafil 20 mg tablet TAKE 1/2 TO 1 TABLET BY MOUTH 30 MINUTES BEFORE SEXUAL ACTIVITY . DO NOT EXCEED 1 TABLET IN 24 HOURS active Not Available Not Available No t Available simvastatin 05/16 completed Not Available Not Available Not Available hydrochlorot hiazide 12.5 mg tablet TAKE 1 TABLET BY MOUTH DAILY active Not Available Not Available No t Available aspirin 81 mg capsule Take 1 capsule every day by oral route. active Not Available Not Available No t Available Vitals Date Recorded Body mass index (BMI) Body height Oxygen saturation Oxygen saturation in Arterial blood by Pulse oximetry Heart rate Body temperature Body weight Systolic blood pressure Diastolic blood pressure Provider Name and Address Organization Details Last Updated DateTime 1 36.3 kg/m2 182.88 cm 96 % 96 % 74 /min 98.1 [degF] 228104. 76 g 130 mm[Hg] 78 mm[Hg] Not Available [facility] 3 22:43:52 Date Recorded Body height Provider Name an d Address Organization Details Last Updated DateTime 11/02/2021 182.88 cm Not Available [facility] 3 22:43:52 Date Recorded Body weight Body temperature Heart rate Oxygen saturation Oxygen saturation in Arterial blood by Pulse oximetry Systolic blood pressure Diastolic blood pressure Provider Name and Address Organization Details Last Updated DateTime 3 872805. 12 g 96 [degF] 107 /min 98 % 98 % 140 mm[Hg] 72 mm[Hg] Jesusita Asencio [facility] [employer] 3 10:53:10 Date Recorded Body weight Body temperature Heart rate Oxygen saturation Oxygen saturation in Arterial blood by Pulse oximetry Systolic blood pressure Diastolic blood pressure Provider Name and Address Organization Details Last Updated DateTime 3 573988. 61 g 97.6 [degF] 89 /min 97 % 97 % 138 mm[Hg] 82 mm[Hg] Tutu Gallagher RN [facility] [employer] 3 08:33:39 Social History Question Answer Notes LastModified by Organizat ion Details LastModified Time Tobacco Smoking Status Former Smoker quit around 2015 Not Available [facility] 01/12/2023 22:43:00 Do You Have An Advance Directive? No [id number] Information not available 01/12/2023 What Is Your Level Of Alcohol Consumption? Occasional [id number] Information not available 01/12/2023 What Is Your Level Of Caffeine Consumption? Moderate [id number] Information not available 01/12/2023 What Was The Date Of Your Most Recent Tobacco Screening? 06/22/2023 Information not available 06/22/2023 Do You Use Sunscreen Routinely? No [id number] Information not available 01/12/2023 Has Tobacco Cessation Counseling Been Provided? No [email or web address] Information not available 05/16/2023 Do You Or Have You Ever Used Any Other Forms Of Tobacco Or Nicotine? No [email or web address] Information not available 05/16/2023 Sex: Unknown Functional Status None recorded. Mental Status None recorded. Family History Relationship Description Onset Age of this Age Resolved Age Notes LastModified by Organization Details LastModified Time Sister Heart murmur [email or web address] [id number] Not available 01/12/2023 22:43:14 Father Polyp of colon [id number] Not available 01/12/2023 22:43:14 Father Peripheral vascular disease [id number] Not available 01/12/2023 22:43:14 Paternal Uncle Malignant tumor of colon [email or web address] Not available 2022 08:38:11 Medical History Condition Response BLINDNESS N RHEUMATIC FEVER N KIDNEY STONES N BLADDER PROBLEMS N MRSA N OTHER # 1 N POLIO N LUNG DISEASE/DISORDER N RADIATION / CHEMOTHERAPY N COPD N Other # 2 N BLOOD DISEASES N SURGERY N EAR OR HEARING PROBLEMS N MUMPS N BOWEL PROBLEMS N FEMALE PROBLEMS / INFECTIONS N DEPRESSION (INCLUDING POST ) N STROKE/TIA N THYROID DISEASE N ULCERS N BENIGN PROSTATIC HYPERPLASIA N MEASLES N CERVICALGIA N TB SKIN TEST N MYOCARDIAL INFARCTION N PARAPELGIA N OBESITY N GERD/NAUSEA N ANEURYSM N URINARY/BLADDER/KIDNEY PROBLEMS N CORONARY ARTERY DISEASE (CAD) N MENIERE'S DISEASE N ADDICTION CONCERNS N ENDOMETRIOSIS N USE OF BLOOD THINNERS N SKIN PROBLEMS N EMPHYSEMA N GASTROINTESTINAL DISORDER N MUSCLE,JOINT OR BONE PROBLEMS N GASTROINTESTINAL BLEEDING N BLOOD CLOTS N ASTHMA N CATARACTS N ERECTILE DYSFUNCTION N GI PROBLEMS N CHF N Low Testosterone N NEUROPATHY N INFERTILITY N AIDS/HIV N FRACTURES N CHEMOTHERAPY / RADIATION N VISION/EYE PROBLEMS N LIVER DISEASE N MALE HYPOGONADISM N HYPERTENSION N ANXIETY DISORDER N BLOOD TRANSFUSION N ANEMIA/BLOOD DISORDER N CHRONIC EAR INFECTIONS N BRONCHITIS N TUBERCULOSIS N GLAUCOMA N FOOT PROBLEM N DIVERTICULITIS N CHICKENPOX N SLEEP APNEA N ALLERGIES/HAYFEVER N INFECTIOUS DISEASE N HEART ARRHYTHMIA N PROSTATE N INSOMNIA N HIGH CHOLESTEROL / HYPERLIPIDEMIA Y HYPERTHYROIDISM N EYE PROBLEMS N EATING DISORDER N NEUROLOGICAL PROBLEMS N EDEMA N CHRONIC PAIN SYNDROME N HYPOTHYROIDISM N CAROTID BLOCKAGE N CONSTIPATION N BACK / NECK PROBLEMS N HAVE YOU BEEN HOSPITALIZED OR SEEN IN [facility] ER IN THE PAST YEAR ? N ATHEROSCLEROSIS N BREAST PROBLEMS N DIALYSIS N ECZEMA N FIBROMYALGIA N OSTEOPOROSIS N ARTHRITIS N NO SIGNIFICANT PAST MEDICAL HISTORY N APPENDICITIS N DIABETES, TYPE N BAD TEETH N HEARTBURN / REFLUX N ADD/ADHD N AUTISM SPECTRUM DISORDER (ASD) N HEPATITIS / LIVER DISEASE N PULMONARY DISEASE N GOUT N SLEEP DISORDER N ALZHEIMER'S DISEASE N PAIN N HERPES N DEMENTIA N HEADACHES/MIGRAINES N SEIZURES/EPILEPSY N VASCULAR DISEASE N PACEMAKER N DIZZINESS N HEART DISEASE/HEART PROBLEMS N KIDNEY DISEASE N DEVELOPMENTAL OR BEHAVIORAL DISORDERS N MULTIPLE SCLEROSIS N SCARLET FEVER N MENTAL DISORDER/ILLNESS N CARDIAC ARRHYTHMIA N CANCER: SPECIFY N PNEUMONIA N ATRIAL FIBRILLATION N Gall Stones N PULMONARY EMBOLISM N AUTOIMMUNE DISEASE N Immunizations Vaccine Type Date Status Note Provider Nam e and Address Organization Details Recorded Time COVID-19, mRNA, LNP-S, PF, 30 mcg/0.3 mL dose 01/02/2021 completed Not Available [facility] 3 22:45:18 COVID-19, mRNA, LNP-S, PF, 100 mcg/0.5mL dose or 50 mcg/0.25mL dose 12/05/2020 completed Not Available [facility] 3 22:45:18 Past Encounters Encounter ID Performer Location Encounter Start Date Encounter Closed Date Diagnosis/Indication Diagnosis SNOMED-CT Code Diagnosis ICD10 Code Diagnosis Note [id number] [facility] [place] [address] [facility] [address] [place] [address] 02/11/2021 00:00:00 02/11/2021 13:39:21 [id number] [facility] [place] [address] [facility] [address] [place] [address] 03/12/2021 00:00:00 03/13/2021 12:30:39 [id number] [facility] [place] [address] [facility] [address] [place] [address] 11/02/2021 00:00:00 11/02/2021 12:33:21 [id number] KIT Peterson [facility] [address] [facility] [address] [place] [address] 05/16/2023 10:46:00 05/16/2023 11:12:01 Hyperlipidemia 08417822 E78.5 G47.33 Will get labs at annual in 4 weeks.Cont inue simvastati n 40mg daily. Edema of l ower extremity 542087763 R60.0 Stable.Con tinue HCTZ 12.5mg daily. Obesity 667450274 E66.9 Pt. inquiring about phentermin e.HR/BP is slightly elevated in office today.Will recheck vitals at visit in 4 weeks and re-discuss at that time as I have advised we need to monitor these vitals closely if planning to start stimulant. Elevated blood-pressure reading without diagnosis of hypertension 448233901 R03.0 Will monitor. Recheck in 4 weeks. [id number] Nasrin Polanco MD [facility] [address] [place] [address] 06/22/2023 08:29:00 06/22/2023 10:55:42 Adult health examination 670219221 Z00.00 Z13.1 R73.9 Remain nonsmokerF quita vaccine yearlyCovi d booster this fallTdap 2027Shingr ix vaccine seriesColo noscopy referral given Screening for malignant neoplasm of prostate 910806177 Z12.5 Hyperlipidemia 99919382 E78.5 Z79.899 Edema of l ower extremity 343519361 R60.0 Screening for malignant neoplasm of colon 234715093 Z12.11 Dietary ma nagement surveillance 098636666 Z71.3 Discussed healthy diet/exerc iseReviewe d potential med s/e, d/c and be seen if any chest pain, sobPt understand s this medication has risk for abuse/depe ndence and agrees to take it only as prescribed and to guard from loss/theft f/u in 4 weeks or sooner if needed Erectile dysfunction 860 510552 F52.21 reviewed potential med s/e and how to use properly Obstructiv e sleep apnea syndrome 36473856 G47.33 uses cpap nightly as prescribed with improvemen t in snoring and daytime somnolence Health Concerns Section Related Observation LastModified by Organization Detai ls LastModified Time None Recorded Concern Status LastModified by Organization Details LastModified Time None Recorded Advance Directives Directive N: Payers Encounter Date Sequence Insurance Name Policy Number Policy Plata Covered Member ID Plata Member ID Guarantor Name 05/16/2023 1 [place] [id number] Mayur Keitamaco [id number] Mayur Sandoval Ezra 06/22/2023 1 [place] [id number] Mayur Munguia [id number] Mayur Munguia Notes Date Note Type Note Provider Name and Address Organization Details Recorded Time 05/16/2023 text/html Pt. states he needs medication refills.He started getting sinus pressure on his left side yesterday. He has taken mucinex. KIT Peterson [address] [place], [place], [address], [email or web address] 05/16/2023 11:12:57 06/22/2023 text/html Here for [facility] exam. Would like to try medication for erections, they are softer than he would like. Would like to try medication for weight loss, is on phentermine. Nasrin Polanco MD [address], [place], [address], [email or web address] 08/09/2023 15:21:38
--- OUTSIDE RECORDS SUMMARY | 2025-02-19 10:07 | XMS_ITS | Clinical Summary ---
Author Organization [facility] Address [address] [place] [id number] Care Team Providers Care Lining Machine Tender Name Role Phone Nasrin Polanco MD Primary Care Provider [phone] Allergies No known active allergies Medications simvastatin 10 MG tablet Take 10 mg by mouth nightly at bedtime. 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 Sexual Orientation Straight 01/14/2022 6: 09 AM SLIP SHEETER Last Filed Vital Signs Vital Sign Reading Time Taken Comments Blood Pressure 157/91 05/05/2018 12:29 PM CDT Pulse 78 05/05/2018 12:29 PM CDT Temperature 36.6 C (97.8 F) 05/05/2018 12:29 PM CDT Respiratory Rate 18 05/05/2018 12:29 PM CDT Oxygen Saturation 98% 05/05/2018 12:29 PM CDT Inhaled Oxygen Concentration - - Weight 99.8 kg (220 lb) 05/05/2018 12:29 PM CDT Height 177.8 cm (5' 10 ) 05/05/2018 12:29 PM CDT Body Mass Index 31.57 05/05/2018 12:29 PM CDT Plan of Treatment Health Maintenance Due Date Last Done Comments Colorectal Cancer Screening Colonoscopy (10 Years) 1968 Annual Physical 1971 Hepatitis C 1986 Hepatitis B Vaccines (1 of 3 - 19+ 3-dose series) 1987 Zoster Vaccines (1 of 2) 2018 COVID-19 Vaccine (3 - 2023-2 5 season) 2024 01/02/2021, 01/02/2021, 12/05/2020 DTaP, Tdap and Td Vaccines ( 2 - Td or Tdap) 05/05/2028 05/05/2018 Meningococcal B Vaccine Aged Out No l onger eligible based on patient's age to complete this topic Meningococcal Vaccine Aged Out No naun bharati eligible based on patient's age to complete this topic Pneumococcal Vaccine: Pediatrics (0 to 5 Years) and At-Risk Patients (6 to 64 Years) Aged Out No longer eligible b ased on patient's age to complete this topic RSV Immunizations Under 20 Months Aged Out No longer eligible b ased on patient's age to complete this topic Insurance [facility] Care Teams Lining Machine Tender Relationship Specialty Start Date End Date Nasrin Polanco MD [address] [place] [address] [place] [address] PCP - General FAMILY PRACTICE 12/16/21
[2025-02-19 16:11] LABS: Alanine Aminotransferase 30 U/L (6-50); Albumin Level 4.3 g/dL (3.5-5.1); Alkaline Phosphatase 88 U/L (38-126); Anion Gap 5 mmol/L (4-12); Aspartate Amino Transferase 53 U/L (17-59); Bilirubin,Total 0.5 mg/dL (0.2-1.3); Blood Urea Nitrogen 22 mg/dL (9-20); Calcium 9.2 mg/dL (8.4-10.2); Carbon Dioxide 31 mmol/L (22-30); Chloride 105 mmol/L (98-107); Cholesterol 160 mg/dL (0-200); Estimated Glomerular Filt Rate > 60; Glucose 87 mg/dL (65-110); HDL Direct 39 mg/dL; Sodium 141 mmol/L (137-145); Triglycerides 106 mg/dL (<150)
[2025-02-19 17:13] LABS: LDL Cholesterol Direct 93 mg/dL
== END 2025-02-19 09:20 | disposition home or self-care (01) ==
LOC: ANHGOSHLAB 09:20
PROVIDERS: PCP Family Medicine; Visit Provider Family Medicine
DX: E87.6 Hypokalemia (principal); E78.2 Mixed hyperlipidemia; R74.8 Abnormal levels of other serum enzymes
CPT/HCPCS: 36415; 80053; 80061

== ENCOUNTER 2025-03-19 10:09 | Outpatient (CLI) | payer BC, SELFPAY ==
--- OUTSIDE RECORDS SUMMARY | 2025-03-19 11:03 | XMS_ITS | Data Portability ---
Author Organization [place] [facility], Main Office Address [address] [place] [address] Assessment No assessment recorded. Plan of Treatment [...] 2022 023 [email or web address] 3 Gary nielson MD, [address], [address], [place], [address], 3 10:48:30 Procedures None recorded. Surgeries None recorded. Imaging None recorded. Medication Orders tadalafil 20 mg tablet 2022 023 [facility] #05014, [address], [place], [place], [id number], 3 09:02:36 phentermine 37.5 mg tablet 2022 023 [facility] #78345, [address], [place], [place], [id number], 3 09:02:37 hydrochloro thiazide 12.5 mg tablet 2022 023 [facility] #88235, [address], [place], [place], [id number], 3 11:09:34 simvastatin 40 mg tablet 2022 023 [facility] #03405, [address], [place], [place], [id number], 3 11:07:10 Patient TargetsNo targets recorded. Patient InstructionsNo instructions recorded. 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 Referring Physician: Nasrin Polanco, Family Medicine, Encounter Date: 06/22/2023 Results Created Date Observation Date Name Description Value Unit Range Abnormal Flag Note LastModifiedBy Organization Detail LastModifiedTime 11/02/20 21 11/02/2021 CBC/C OMPLE TE BLD COUNT W/DIF F white blood cells 7.3 x10'3 /uL 4.2-10 .8 Not Available [facility] (Lab) [address] [place], [address], 11/02/2021 19:56:47 11/02/20 21 11/02/2021 CBC/C OMPLE TE BLD COUNT W/DIF F red blood cells 5.27 x10'6 /uL 4.10-5 .80 Not Available [facility] (Lab) [address] [place], [address], 11/02/2021 19:56:47 11/02/20 21 11/02/2021 CBC/C OMPLE TE BLD COUNT W/DIF F hemoglobin 15.0 g/dL 13.2-1 7.0 Not Available [facility] (Lab) [address] [place], [address], 11/02/2021 19:56:47 11/02/20 21 11/02/2021 CBC/C OMPLE TE BLD COUNT W/DIF F hematocrit 46.2 % 39.3-5 0.0 Not Available [facility] (Lab) [address] [place], [address], 11/02/2021 19:56:47 11/02/2011/02/2021 CBC/C OMPLE TE BLD COUNT W/DIF F mean red cell volume 87.7 fL 80.0-9 7.0 Not Available [facility] (Lab) [address] [place], [address], 11/02/2021 19:56:47 11/02/20 21 11/02/2021 CBC/C OMPLE TE BLD COUNT W/DIF F mean red cell hemoglobin 28.5 pg 27.0-3 3.0 Not Available [facility] (Lab) [address] [place], [address], 11/02/2021 19:56:47 11/02/20 21 11/02/2021 CBC/C OMPLE TE BLD COUNT W/DIF F mean RBC HGB concentratio n 32.5 g/dL 31.0-3 6.0 Not Available [facility] (Lab) [address] [place], [address], 11/02/2021 19:56:47 11/02/20 21 11/02/2021 CBC/C OMPLE TE BLD COUNT W/DIF F red cell distribution width 12.5 % 11.8-1 5.5 Not Available [facility] (Lab) [address] [place], [address], 11/02/2021 19:56:47 11/02/20 21 11/02/2021 CBC/C OMPLE TE BLD COUNT W/DIF F platelets 130 x10'3 /uL 150-40 0 low Not Available [facility] (Lab) [address] [place], [address], 11/02/2021 19:56:47 11/02/20 21 11/02/2021 CBC/C OMPLE TE BLD COUNT W/DIF F mean platelet volume 12.5 fL 9.0-12 .4 high Not Available [facility] (Lab) [address] [place], [address], 11/02/2021 19:56:47 11/02/2011/02/2021 CBC/C OMPLE TE BLD COUNT W/DIF F neutrophils 54.2 % 39.0-7 2.0 Not Available [facility] (Lab) [address] [place], [address], 11/02/2021 19:56:47 11/02/20 21 11/02/2021 CBC/C OMPLE TE BLD COUNT W/DIF F lymphocytes 34.0 % 16.0-4 7.0 Not Available [facility] (Lab) [address] [place], [address], 11/02/2021 19:56:47 11/02/2011/02/2021 CBC/C OMPLE TE BLD COUNT W/DIF F monocytes 8.3 % 5.0-12 .0 Not Available [facility] (Lab) [address] [place], [address], 11/02/2021 19:56:47 11/02/20 21 11/02/2021 CBC/C OMPLE TE BLD COUNT W/DIF F eosinophils 2.6 % 1.0-7. 0 Not Available [facility] (Lab) [address] [place], [address], 11/02/2021 19:56:47 11/02/20 21 11/02/2021 CBC/C OMPLE TE BLD COUNT W/DIF F basophils 0.6 % 0.0-2. 0 Not Available [facility] (Lab) [address] [place], [address], 11/02/2021 19:56:47 11/02/20 21 11/02/2021 CBC/C OMPLE TE BLD COUNT W/DIF F immature granulocytes 0.3 % 0.00-0 .50 Not Available [facility] (Lab) [address] [place], [address], 11/02/2021 19:56:47 11/02/20 21 11/02/2021 CBC/C OMPLE TE BLD COUNT W/DIF F neutrophils, absolute count 3.94 x10'3 /uL 1.5-8. 0 Not Available [facility] (Lab) [address] [place], [address], 11/02/2021 19:56:47 11/02/20 21 11/02/2021 CBC/C OMPLE TE BLD COUNT W/DIF F lymphocytes, absolute count 2.47 x10'3 /uL 1.07-3 .43 Not Available [facility] (Lab) [address] [place], [address], 11/02/2021 19:56:47 11/02/20 21 11/02/2021 CBC/C OMPLE TE BLD COUNT W/DIF F monocytes, absolute count 0.60 x10'3 /uL 0.29-0 .99 Not Available [facility] (Lab) [address] [place], [address], 11/02/2021 19:56:47 11/02/20 21 11/02/2021 CBC/C OMPLE TE BLD COUNT W/DIF F eosinophils, absolute count 0.19 x10'3 /uL 0.02-0 .53 Not Available [facility] (Lab) [address] [place], [address], 11/02/2021 19:56:47 11/02/20 21 11/02/2021 CBC/C OMPLE TE BLD COUNT W/DIF F basophils, absolute count 0.04 x10'3 /uL 0.01-0 .08 Not Available [facility] (Lab) [address] [place], [address], 11/02/2021 19:56:47 11/02/20 21 11/02/2021 CBC/C OMPLE TE BLD COUNT W/DIF F immature granulocytes ,absolute 0.02 x10'3 /uL 0.00-0 .05 Not Available [facility] (Lab) [address] [place], [address], 11/02/2021 19:56:47 11/02/20 21 11/02/2021 CBC/C OMPLE TE BLD COUNT W/DIF F nucleated red blood cells 0.0 % -0 Not Available [facility] (Lab) [address] [place], [address], 11/02/2021 19:56:47 11/02/20 21 11/02/2021 CBC/C OMPLE TE BLD COUNT W/DIF F NRBC# 0.00 x10'3 /uL Not Available [facility] (Lab) [address] [place], [address], 11/02/2021 19:56:47 06/22/2006/22/2023 BASIC METAB OLIC PANEL sodium 138 mmol/ L 137-14 5 Not Available [facility] (Lab) [address] [place], [address], 06/22/2023 19:30:24 06/22/2006/22/2023 BASIC METAB OLIC PANEL potassium 3.6 mmol/ L 3.5-5. 1 Not Available [facility] (Lab) [address] [place], [address], 06/22/2023 19:30:24 06/22/20 23 06/22/2023 BASIC METAB OLIC PANEL chloride 101 mmol/ L 98-107 Not Available [facility] (Lab) [address] [place], [address], 06/22/2023 19:30:24 06/22/20 23 06/22/2023 BASIC METAB OLIC PANEL carbon dioxide 30 mmol/ L 22-30 Not Available [facility] (Lab) [address] [place], [address], 06/22/2023 19:30:24 06/22/20 23 06/22/2023 BASIC METAB OLIC PANEL anion gap 10.6 mmol/ L 14-22 low Not Available [facility] (Lab) [address] [place], [address], 06/22/2023 19:30:24 06/22/20 23 06/22/2023 BASIC METAB OLIC PANEL glucose 102 mg/dL 70-99 high Not Available [facility] (Lab) [address] [place], [address], 06/22/2023 19:30:24 06/22/20 23 06/22/2023 BASIC METAB OLIC PANEL BUN 20 mg/dL 8-19 high Not Available [facility] (Lab) [address] [place], [address], 06/22/2023 19:30:24 06/22/20 23 06/22/2023 BASIC METAB OLIC PANEL creatinine 0.87 mg/dL 0.66-1 .25 Not Available [facility] (Lab) [address] [place], [address], 06/22/2023 19:30:24 06/22/20 23 06/22/2023 BASIC METAB OLIC PANEL GFR >60 Refer ence Range : [place] ge GFR Healt hy Adult : >60 [...] calcu lator is avail able on the [facility] websi te: https ://tim w.jud justin.o rg/pr ofess ional s/kdo qi/gf r_cal culat or Not Available [facility] (Lab) [address] [place], [address], 06/22/2023 19:30:24 06/22/2006/22/2023 BASIC METAB OLIC PANEL calcium 9.3 mg/dL 8.4-10 .2 Not Available [facility] (Lab) [address] [place], [address], 06/22/2023 19:30:24 06/22/2006/22/2023 LIPID PANEL cholesterol 170 mg/dL 140-19 9 NIH LALIT NSUS RECOM MENDA TION FOR MICHAEL STERO L: ADULT CHILD LOW RISK: <200 <170 BORDE RLINE : <200- 239 ----- HIGH RISK: >240 >200 Not Available [facility] (Lab) [address] [place], [address], 06/22/2023 19:30:29 06/22/2006/22/2023 LIPID PANEL triglyceride s 131 mg/dL 0-150 NIH LALIT NSUS REPOR T RECOM MENDA TION FOR TRIGL YCERI NAIDA: ADULT CHILD LOW RISK: <150 ----- BODER LINE: 150-1 99 ----- HIGH RISK: >200 ----- Not Available [facility] (Lab) [address] [place], [address], 06/22/2023 19:30:29 06/22/2006/22/2023 LIPID PANEL HDL cholesterol 38 mg/dL 40- low Not Available [facility] (Lab) [address] [place], [address], 06/22/2023 19:30:29 06/22/2006/22/2023 LIPID PANEL LDL cholesterol, calculated 106 mg/dL [...] WILL NOT BE REPOR RAH. Not Available [facility] (Lab) [address] [place], [address], 06/22/2023 19:30:29 06/22/2006/22/2023 HEPAT IC/LI NONI PANEL alkaline phosphatase 92 U/L 38-126 Not Available [facility] (Lab) [address] [place], [address], 06/22/2023 19:30:34 06/22/2006/22/2023 HEPAT IC/LI NONI PANEL alanine aminotransfe rase 28 U/L 0-50 Not Available [facility] (Lab) [address] [place], [address], 06/22/2023 19:30:34 06/22/20 23 06/22/2023 HEPAT IC/LI NONI PANEL aspartate aminotransfe rase 33 U/L 15-46 Not Available [facility] (Lab) [address] [place], [address], 06/22/2023 19:30:34 06/22/20 23 06/22/2023 HEPAT IC/LI NONI PANEL bilirubin, total 0.40 mg/dL 0.20-1 .30 Not Available [facility] (Lab) [address] [place], [address], 06/22/2023 19:30:34 06/22/20 23 06/22/2023 HEPAT IC/LI NONI PANEL bilirubin, conjugated (direct) 0.00 mg/dL 0.00-0 .30 Not Available [facility] (Lab) [address] [place], [address], 06/22/2023 19:30:34 06/22/20 23 06/22/2023 HEPAT IC/LI NONI PANEL biliurubin,u ncong. (indirect) 0.30 mg/dL 0.00-1 .1 Not Available [facility] (Lab) [address] [place], [address], 06/22/2023 19:30:34 06/22/20 23 06/22/2023 HEPAT IC/LI NONI PANEL total protein 7.5 g/dL 6.3-8. 2 Not Available [facility] (Lab) [address] [place], [address], 06/22/2023 19:30:34 06/22/20 23 06/22/2023 HEPAT IC/LI NONI PANEL albumin 4.5 g/dL 3.4-5. 0 Not Available [facility] (Lab) [address] [place], [address], 06/22/2023 19:30:34 06/22/20 23 06/22/2023 HEPAT IC/LI NONI PANEL globulin 3.0 g/dL 2.6-4. 2 Not Available [facility] (Lab) [address] [place], [address], 06/22/2023 19:30:34 06/22/20 23 06/22/2023 HEPAT IC/LI NONI PANEL A/G ratio 1.5 ratio 1.0-2. 0 Not Available [facility] (Lab) [address] [place], [address], 06/22/2023 19:30:34 06/22/20 23 06/22/2023 CBC/C OMPLE TE BLD COUNT W/DIF F white blood cells 8.8 x10'3 /uL 4.2-10 .8 Not Available [facility] (Lab) [address] [place], [address], 06/22/2023 19:39:12 06/22/2006/22/2023 CBC/C OMPLE TE BLD COUNT W/DIF F red blood cells 5.39 x10'6 /uL 4.10-5 .80 Not Available [facility] (Lab) [address] [place], [address], 06/22/2023 19:39:12 06/22/2006/22/2023 CBC/C OMPLE TE BLD COUNT W/DIF F hemoglobin 15.5 g/dL 13.2-1 7.0 Not Available [facility] (Lab) [address] [place], [address], 06/22/2023 19:39:12 06/22/20 23 06/22/2023 CBC/C OMPLE TE BLD COUNT W/DIF F hematocrit 47.1 % 39.3-5 0.0 Not Available [facility] (Lab) [address] [place], [address], 06/22/2023 19:39:12 06/22/20 23 06/22/2023 CBC/C OMPLE TE BLD COUNT W/DIF F mean red cell volume 87.4 fL 80.0-9 7.0 Not Available [facility] (Lab) [address] [place], [address], 06/22/2023 19:39:12 06/22/2006/22/2023 CBC/C OMPLE TE BLD COUNT W/DIF F mean red cell hemoglobin 28.8 pg 27.0-3 3.0 Not Available [facility] (Lab) [address] [place], [address], 06/22/2023 19:39:12 06/22/2006/22/2023 CBC/C OMPLE TE BLD COUNT W/DIF F mean RBC HGB concentratio n 32.9 g/dL 31.0-3 6.0 Not Available [facility] (Lab) [address] [place], [address], 06/22/2023 19:39:12 06/22/2006/22/2023 CBC/C OMPLE TE BLD COUNT W/DIF F red cell distribution width 12.8 % 11.8-1 5.5 Not Available [facility] (Lab) [address] [place], [address], 06/22/2023 19:39:12 06/22/2006/22/2023 CBC/C OMPLE TE BLD COUNT W/DIF F platelets 139 x10'3 /uL 150-40 0 low Not Available [facility] (Lab) [address] [place], [address], 06/22/2023 19:39:12 06/22/2006/22/2023 CBC/C OMPLE TE BLD COUNT W/DIF F mean platelet volume 12.8 fL 9.0-12 .4 high Not Available [facility] (Lab) [address] [place], [address], 06/22/2023 19:39:12 06/22/2006/22/2023 CBC/C OMPLE TE BLD COUNT W/DIF F neutrophils 54.0 % 39.0-7 2.0 Not Available [facility] (Lab) [address] [place], [address], 06/22/2023 19:39:12 06/22/2006/22/2023 CBC/C OMPLE TE BLD COUNT W/DIF F lymphocytes 36.0 % 16.0-4 7.0 Not Available [facility] (Lab) [address] [place], [address], 06/22/2023 19:39:12 06/22/2006/22/2023 CBC/C OMPLE TE BLD COUNT W/DIF F monocytes 6.9 % 5.0-12 .0 Not Available [facility] (Lab) [address] [place], [address], 06/22/2023 19:39:12 06/22/2006/22/2023 CBC/C OMPLE TE BLD COUNT W/DIF F eosinophils 2.4 % 1.0-7. 0 Not Available [facility] (Lab) [address] [place], [address], 06/22/2023 19:39:12 06/22/2006/22/2023 CBC/C OMPLE TE BLD COUNT W/DIF F basophils 0.5 % 0.0-2. 0 Not Available [facility] (Lab) [address] [place], [address], 06/22/2023 19:39:12 06/22/2006/22/2023 CBC/C OMPLE TE BLD COUNT W/DIF F immature granulocytes 0.2 % 0.00-0 .50 Not Available [facility] (Lab) [address] [place], [address], 06/22/2023 19:39:12 06/22/2006/22/2023 CBC/C OMPLE TE BLD COUNT W/DIF F neutrophils, absolute count 4.76 x10'3 /uL 1.5-8. 0 Not Available [facility] (Lab) [address] [place], [address], 06/22/2023 19:39:12 06/22/20 23 06/22/2023 CBC/C OMPLE TE BLD COUNT W/DIF F lymphocytes, absolute count 3.17 x10'3 /uL 1.07-3 .43 Not Available [facility] (Lab) [address] [place], [address], 06/22/2023 19:39:12 06/22/2006/22/2023 CBC/C OMPLE TE BLD COUNT W/DIF F monocytes, absolute count 0.61 x10'3 /uL 0.29-0 .99 Not Available [facility] (Lab) [address] [place], [address], 06/22/2023 19:39:12 06/22/2006/22/2023 CBC/C OMPLE TE BLD COUNT W/DIF F eosinophils, absolute count 0.21 x10'3 /uL 0.02-0 .53 Not Available [facility] (Lab) [address] [place], [address], 06/22/2023 19:39:12 06/22/2006/22/2023 CBC/C OMPLE TE BLD COUNT W/DIF F basophils, absolute count 0.04 x10'3 /uL 0.01-0 .08 Not Available [facility] (Lab) [address] [place], [address], 06/22/2023 19:39:12 06/22/2006/22/2023 CBC/C OMPLE TE BLD COUNT W/DIF F immature granulocytes ,absolute 0.02 x10'3 /uL 0.00-0 .05 Not Available [facility] (Lab) [address] [place], [address], 06/22/2023 19:39:12 06/22/2006/22/2023 CBC/C OMPLE TE BLD COUNT W/DIF F nucleated red blood cells 0.2 % -0 high Not Available [facility] (Lab) [address] [place], [address], 06/22/2023 19:39:12 06/22/20 23 06/22/2023 CBC/C OMPLE TE BLD COUNT W/DIF F NRBC# 0.02 x10'3 /uL Not Available [facility] (Lab) [address] [place], [address], 06/22/2023 19:39:12 06/22/20 23 06/22/2023 PSA SCREE N PSA medicare screen 1.53 NG/mL 0.00-4 .00 Not Available [facility] (Lab) [address] [place], [address], 06/22/2023 20:00:23 06/22/2006/22/2023 HEMOG LOBIN A1C HA1C 5.9 % 4.0-6. 0 Diabe bobby Scree senthil Crite rissa: <5.7% Consi stent with absen ce of diabe bobby 5.7-6 .4% Consi stent with incre ased risk for diabe bobby (pred iabet es) >OR=6 .5% Consi stent with diabe bobby REFER ENCE: Diabe bobby Care 2016, 39(Stokes ppl.1 ):s13 -s22 Not Available [facility] (Lab) [address] [place], [address], 06/22/2023 20:01:12 01/16/20 22 01/14/2022 CT, coron macie calci um score No observ ation record ed. [id number] [facility] [address], [place], [address], 01/12/2023 22:45:32 08/08/20 23 rajinder nuous posit galilea airwa y press ure venti latio n (CPAP ), initi ation and manag ement (PROC ) No observ ation record ed. [email or web address] Not Available 2023 09:05:21 Result Notes None recorded. Problems Name Problem SNOMED Code Status Onset Date Resolution Date Notes Provider Name and Address Organization Details Recorded Time Hyperchole sterolemia 79218002 Completed 202002/11/2021 Not Available [facility] 3 22:44:14 Hyperlipid emia 97611711 Active 2020 Not Available [facility] 3 22:44:14 Obstructiv e sleep apnea syndrome 24966478 Active 2020 cpap Not Available [facility] 3 22:44:14 Edema of lower extremity 860973276 Active 2022 KIT Peterson [address], [place], [address] , [employer] 3 11:07:28 Obesity 597644701 Active 2022 KIT Peterson [address], [place], [address] , [employer] 3 11:09:36 Elevated blood-pres sure reading without diagnosis of hypertensi on 826109514 Active 2022 KIT Peterson [address], [place], [address] , [employer] 3 11:12:23 Adult health examinatio n Active 2022 Nasrin Polanco MD [address], [place], [address] , [employer] 3 08:45:19 Erectile dysfunctio n 831570430 Active 2022 Nasrin Polanco MD [address], [place], [address] , [facility] [employer] [facility] 3 08:56:16 Prediabete s 164515273 Active 2022 a1c 5.9 06/2023 Nasrin Polanco MD [address], [place], [address] , [facility] [employer] [facility] [employer] [facility] 3 08:00:25 Problem Notes None recorded. Procedures Surgical History Date Name Laterality Status Provider Name and Address Organization Details Recorded Time Vasectomy completed Not Available [facility] 0 01/12/2023 22:43:12 Imaging Results Imaging Date Name Status LastModified by Organiz ation Details LastModified Time 01/14/2022 CT, coronary calcium score completed [id number] [facility], [place], [address], 01/12/2023 22:45:32 08/08/2023 continuous positive airway pressure [...] % 96 % 74 /min 98.1 [degF] 955147. 76 g 130 mm[Hg] 78 mm[Hg] Not Available [facility] 3 22:43:52 Date Recorded Body height Provider Name an d Address Organization Details Last Updated DateTime 11/02/2021 182.88 cm Not Available [facility] 3 22:43:52 Date Recorded Body weight Body temperature Heart rate Oxygen saturation Oxygen saturation in Arterial blood by Pulse oximetry Systolic blood pressure Diastolic blood pressure Provider Name and Address Organization Details Last Updated DateTime 3 955364. 12 g 96 [degF] 107 /min 98 % 98 % 140 mm[Hg] 72 mm[Hg] Jesusita Asencio CMA [place] [employer] 3 10:53:10 Date Recorded Body weight Body temperature Heart rate Oxygen saturation Oxygen saturation in Arterial blood by Pulse oximetry Systolic blood pressure Diastolic blood pressure Provider Name and Address Organization Details Last Updated DateTime 3 453308. 61 g 97.6 [degF] 89 /min 97 % 97 % 138 mm[Hg] 82 mm[Hg] Tutu Gallagher RN [facility] [employer] 3 08:33:39 Social History Question Answer Notes LastModified by Organizat ion Details LastModified Time Tobacco Smoking Status Former Smoker quit around 2015 Not Available [facility] 01/12/2023 22:43:00 Do You Have An Advance Directive? No [id number] Information not available 01/12/2023 What Is Your Level Of Alcohol Consumption? Occasional [id number] Information not available 01/12/2023 What Is Your Level Of Caffeine Consumption? Moderate [id number] Information not available 01/12/2023 What Was The Date Of Your Most Recent Tobacco Screening? 06/22/2023 Information not available 06/22/2023 Do You Use Sunscreen Routinely? No [id number] Information not available 01/12/2023 Has Tobacco Cessation Counseling Been Provided? No [email or web address] Information not available 05/16/2023 Do You Or Have You Ever Used Any Other Forms Of Tobacco Or Nicoti [id number]|2025-03-19 11:03:00|2025-03-19 11:03:00|XMS_ITS|AMAURIG JUDITH|External Medical Summaries|[id number]|" Clinical Summary Created on: March 19, 2025 Mayur Munguia : 1970 Sex: Male Author Organization [facility] Address [address] [place], [place] [id number] Care Team Providers Care Lay Ups Assembler Name Role Phone Nasrin Polanco MD Primary Care Provider [phone] Allergies No known active allergies Medications simvastatin 10 MG tablet Take 10 mg by mouth nightly at bedtime. 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
--- NOTE | 2025-04-04 11:01 | P.SLEEP_ITS ---
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 The patient rarely awakens from sleep short of breath. He rarely awakens at night with heartburn, belching or cough. He constantly snores and is frequently loud enough that others complain. He occasionally has trouble sleeping when he has a cold. He occasionally wakes up gasping for air throughout the night. He frequently has breathing problems at night observed by himself or others. He rarely sweats excessively at night. He rarely has heart palpitations or irregular heartbeats during the night. He rarely falls asleep during the day and rarely falls asleep while driving. He denies sleep paralysis and cataplexy. He denies having trouble at school or work due to sleepiness. He occasionally experiences vivid dreamlike scenes upon awakening or falling asleep. He denies feeling afraid of going to sleep. He rarely has nightmares. He occasionally remembers his dreams. He rarely has thoughts racing through his mind. He rarely feels sad, depressed or anxious. He rarely has muscular tension. He rarely notices parts of his body jerk. He occasionally kicks during the night. He occasionally has crawling and aching feelings in his legs and occasionally has leg pain during the night. He rarely grinds his teeth during sleep and never awakens with morning jaw pain. He is rarely bothered by pain during the day and rarely awakened by pain during the night. He rarely wakes up feeling stiff in the morning. He rarely wakes up with sore or achy muscles. He occasionally wakes up with pain in the neck, spine and other joints. He goes to bed 8:00 a.m. on weekdays and at 2:00 a.m. on the weekends. It takes him 5 minutes to fall asleep. He wakes up twice throughout the night to urinate and get a drink. He is able to fall back asleep within a few minutes. He wakes up at 3:00 p.m. on weekdays and at 10:00 a.m. on the weekends. He typically gets 6-8 hours of sleep per night. He will stay in bed for a few minutes after waking up in the morning. He currently lives with his and child. 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 The patient will switch to a day schedule on the weekends. He denies consuming any caffeinated beverages within 2 hours of bedtime. He denies engaging in physical exercise before bedtime. He will watch television before falling asleep. He denies taking naps in afternoon to evening. He consumes 2 caffeinated beverages per day. He is a former smoker. He consumes 3 alcoholic beverages per week. He denies recreational drug use. [facility] Past Medical History Medical History H/O pilonidal cyst Surgical History Surgical History History of excision of pilonidal cyst Family History Family History Father Hypertension Alcohol abuse Grandparent Cerebrovascular accident Diabetes mellitus Social History Social History Smoking packs per day: 1 Smoking cigarettes per day: 20.0 Years smoked: 20 Smoking pack-years: 20.00 Smoking status: Former smoker Tobacco type: cigarettes Alcohol intake: current Drinks per week: 2 Substance use: never Substance use type: does not use Do You Feel Safe in your Home?: Yes Lack of Transportation: No Lack of Food: Never True Current Housing: Decline to Answer Concerned About Future Housing: No Difficulty Paying Gas/Electric Bills: No Difficulty Paying for Meds: No Currently Unemployed: No Education: High School Diploma/GED Living arrangements: with family Occupation/Education: occupation Gender identity (if verbalized by the patient): Male Sexual Orientation (if Verbalized by the Patient): Straight or Heterosexual Spiritual care concerns: No Medications Home Medications Medication Instructions Recorded Confirmed Type aspirin 81 mg tablet,delayed 81 mg PO DAILY 04/25/24 02/22/25 History release (Adult Aspirin Regimen) cholecalciferol (vitamin D3) 125 125 mcg PO DAILY 04/25/24 02/22/25 History mcg (5,000 unit) capsule [id number]-it-hhfmr 300 mcg-K 60 1 tablet PO DAILY 04/25/24 02/22/25 History mcg-lycop 600 mcg-lutein 300 mcg tablet (Centrum Silver Men) omega 8-tme-oer-fish oil 100 1 cap PO DAILY 04/25/24 02/22/25 History mg-160 mg-1,000 mg capsule (Fish Oil) paroxetine HCl 10 mg tablet (Paxil) 10 mg PO DAILY #90 tabs 08/15/24 02/22/25 Rx CPAP #1 ea 09/17/24 02/22/25 Rx CPAP Equipment #1 ea 09/17/24 02/22/25 Rx eszopiclone 3 mg tablet (Lunesta) 3 mg PO QHS #1 tablet 12/20/24 02/22/25 Rx rosuvastatin 10 mg tablet See Rx Instructions .Route 02/18/25 02/22/25 Rx .COMPLEX #90 tabs lisinopril 5 mg tablet 5 mg PO DAILY #90 tabs 02/22/25 02/22/25 Rx Sleep Procedure A full night CPAP Titration using the [employer] multi-channel system recorded the standard physiologic parameters including EEG, EOG, submentalis EMG, anterior tibialis EMG, EKG, body position, nasal and oral airflow using nasal pressure sensor and thermistor. Respiratory parameters of chest and abdominal movements were recorded with Respiratory Inductance Plethysmography belts. Oxygen saturation was recorded by pulse oximetry. Video monitoring was also performed. Sleep stages, periodic limb movements, and EEG arousals were scored in 30 second epochs according to the criteria of the AASM Scoring Manual. The Apnea-Hypopnea Index was calculated using CMS guidelines for definition of hypopnea with 4% O2 desaturations while scoring respiratory events. Sleep Architecture The total recording time was 522.3 minutes. The total sleep time was 476.5 minutes. Sleep latency was 3.6 minutes. REM latency was 97.0 minutes. Sleep efficiency was 91.2%. The patient had 23 awakenings for an awakening index of 2.9. Wake after Sleep Onset time was 42.5 minutes. The patient spent 61.5 minutes, 12.9% of total sleep time in Stage N1. The patient spent 323.5 minutes, 67.9% in Stage N2. The patient spent 0.0 minutes, 0.0% in Stage N3. The patient spent 91.5 minutes, 19.2% in Stage REM. Respiratory Analysis The patient had 36 hypopneas, 17 mixed apneas, and 11 central apneas for an overall Apnea Hypopnea Index of 8.1 events per hour. The REM Apnea Hypopnea Index was 13.8. The NREM Apnea Hypopnea Index was 6.7. The patient had a Central Apnea Hypopnea Index of 1.4. There was no evidence of Bridger-Irby Respirations. The patient was started on CPAP 5 cm H2O and titrated to CPAP 11 cm H2O due to central apneas, mixed apneas and hypopneas. The patient was able to fall asleep starting on CPAP 5 cm H2O. The patient was able to achieve REM sleep starting on CPAP 5 cm H2O. The patient was able to achieve a residual AHI of 6.0 with both NREM and REM in the supine position on the final pressure setting. On CPAP 11 cm H2O, the patient spent 28 minutes in NREM and 22 minutes in REM with 2 central apneas, 1 mixed apnea and 2 hypopneas, resulting in an AHI of 6.0. The patient had a sleep efficiency of 76.9% on this pressure setting. While the patient had residual AHIs less than 5 on lower pressure settings, the patient developed a significant amount of respiratory events when he switched to the supine position. Arousals There were 185 total arousals for an arousal index of 23.3. There were 59 spontaneous arousals for an index of 7.4. There were 28 arousals due to respiratory events for an index of 3.5. There were 71 arousals due to periodic limb movements for an index of 8.9. There were 23 arousals due to isolated limb movements for an index of 2.9. Periodic Limb Movements The patient had 51 isolated limb movements with an index of 6.4. The patient had 452 periodic limb movements with index of 56.9, which is elevated (normal < 15). Patient had a total of 503 limb movements with a total limb movement index of 63.3. Oximetry Data The patient had an average oxygen saturation of 93.1% in sleep with a minimum oxygen saturation of 84.0% and a maximum oxygen saturation of 98.0%. The patient had 58 oxygen desaturations that were 4% or greater resulting in an Oxygen Desaturation Index of 7.3. The patient spent 5.5 minutes, 1.1% of total sleep time with an oxygen saturation below 88%. Snoring Profile Mild snoring was present intermittently throughout the study. The snoring resolved once the patient was titrated to 11 cm H2O. Cardiac Profile The EKG showed normal sinus rhythm. No arrhythmias or premature beats were seen. The patient had an average pulse rate of 61.6 bpm with a minimum pulse rate of 52.0 bpm and a maximum pulse rate of 79.0 bpm. EEG Profile No signs of seizure activity seen. Assessment and Plan Assessment and Plan (1) DOLORES (obstructive sleep apnea): Code(s): G47.33 - Obstructive sleep apnea (adult) (pediatric) Status: Acute Assessment and Plan: The patient was started on CPAP 5 cm H2O and titrated to CPAP 11 cm H2O due to central apneas, mixed apneas and hypopneas. The patient's sleep apnea mostly resolved on the final pressure setting. The central apneas that were present should resolve within 90 days. I recommend that the patient's pressure setting be changed to CPAP 11 cm H2O using size medium F&P Solo nasal pillows. This should be used with all episodes of sleep. Compliance should be reviewed within 31-90 days of starting therapy for usage greater than 4 hours per night greater than 70% of the nights. The patient should be asked about symptoms such as excessive daytime sleepiness, quality of sleep, decreased nocturia, increased mental functioning such as memory, mood, and concentration. (2) PLMD (periodic limb movement disorder): Code(s): G47.61 - Periodic limb movement disorder Status: Acute Assessment and Plan: The patient had a significant number of limb movements during the study with the majority being periodic in nature. Approximately 15% of the periodic limb movements caused arousals in the patient's sleep. The patient's sleep history is somewhat suggestive of Restless Leg Syndrome. I recommend that the patient have a serum ferritin drawn for evaluation of iron deficiency anemia. If the patient has a serum ferritin less than 75 ng/mL, I recommend starting a daily iron supplement and a Vitamin C supplement for better absorption. If the serum ferritin is greater than 75 ng/mL, I recommend starting a dopamine agonist and titrating the dose until symptoms resolve. There are nonpharmacological methods to treat limb movements including daily exercise, stretching calf muscles before bed, avoiding excessive amounts of caffeine and alcohol, vitamin B supplementation, magnesium lotion massaged into legs before bed, and use of a weighted blanket. Data The data obtained during this sleep study is adequate for interpretation. Certification This sleep study has been reviewed by a board certified sleep medicine physician.
[2025-04-04 11:02] VITALS: BMI 41.5
== END 2025-03-20 07:21 | disposition home or self-care (01) ==
LOC: ANHCSM 10:12
PROVIDERS: PCP Family Medicine; Visit Provider Family Medicine
DX: G47.33 Obstructive sleep apnea (adult) (pediatric) (principal); G47.61 Periodic limb movement disorder; I10 Essential (primary) hypertension; F39 Unspecified mood [affective] disorder
CPT/HCPCS: 95811

== ENCOUNTER 2025-04-11 12:48 | Outpatient (CLI) | payer BC, SELFPAY ==
--- OUTSIDE RECORDS SUMMARY | 2025-04-11 12:55 | XMS_ITS | Data Portability ---
Author Organization [place] - S [employer] Main Office Address [address] [place] [address] Assessment No assessment recorded. Plan of Treatment [...] 2022 023 [email or web address] 3 Gary nielson MD, [address], [facility] [address], [place], [address], 3 10:48:30 Procedures None recorded. Surgeries None recorded. Imaging None recorded. Medication Orders tadalafil 20 mg tablet 2022 023 [facility] #[id number], [address], [place], [place], [id number], 3 09:02:36 phentermine 37.5 mg tablet 2022 023 [facility] #[id number], [address], [place], [place], [id number], 3 09:02:37 hydrochloro thiazide 12.5 mg tablet 2022 023 [facility] #59963, [address], [place], [place], [id number], 3 11:09:34 simvastatin 40 mg tablet 2022 023 [facility] #[id number], [address], [place], [place], [id number], 3 11:07:10 Patient TargetsNo targets recorded. Patient InstructionsNo instructions recorded. 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[employer] Referral for Screening for malignant neoplasm of colon Referring Physician: Nasrin Polanco, Family Medicine, Encounter Date: 06/22/2023 Results Created Date Observation Date Name Description Value Unit Range Abnormal Flag Note LastModifiedBy Organization Detail LastModifiedTime 11/02/20 21 11/02/2021 CBC/C OMPLE TE BLD COUNT W/DIF F white blood cells 7.3 x10'3 /uL 4.2-10 .8 Not Available [facility] (Lab) [address] [place], [address], 11/02/2021 19:56:47 11/02/20 21 11/02/2021 CBC/C OMPLE TE BLD COUNT W/DIF F red blood cells 5.27 x10'6 /uL 4.10-5 .80 Not Available [facility] (Lab) [address] [place], [address], 11/02/2021 19:56:47 11/02/20 21 11/02/2021 CBC/C OMPLE TE BLD COUNT W/DIF F hemoglobin 15.0 g/dL 13.2-1 7.0 Not Available [facility] (Lab) [address] [place], [address], 11/02/2021 19:56:47 11/02/20 21 11/02/2021 CBC/C OMPLE TE BLD COUNT W/DIF F hematocrit 46.2 % 39.3-5 0.0 Not Available [facility] (Lab) [address] [place], [address], 11/02/2021 19:56:47 11/02/20 21 11/02/2021 CBC/C OMPLE TE BLD COUNT W/DIF F mean red cell volume 87.7 fL 80.0-9 7.0 Not Available [facility] (Lab) [address] [place], [address], 11/02/2021 19:56:47 11/02/20 21 11/02/2021 CBC/C OMPLE TE BLD COUNT W/DIF F mean red cell hemoglobin 28.5 pg 27.0-3 3.0 Not Available [facility] (Lab) [address] [place], [address], 11/02/2021 19:56:47 11/02/20 21 11/02/2021 CBC/C OMPLE TE BLD COUNT W/DIF F mean RBC HGB concentratio n 32.5 g/dL 31.0-3 6.0 Not Available [facility] (Lab) [address] [place], [address], 11/02/2021 19:56:47 11/02/20 21 11/02/2021 CBC/C OMPLE TE BLD COUNT W/DIF F red cell distribution width 12.5 % 11.8-1 5.5 Not Available [facility] (Lab) [address] [place], [address], 11/02/2021 19:56:47 11/02/20 21 11/02/2021 CBC/C OMPLE TE BLD COUNT W/DIF F platelets 130 x10'3 /uL 150-40 0 low Not Available [facility] (Lab) [address] [place], [address], 11/02/2021 19:56:47 11/02/20 21 11/02/2021 CBC/C OMPLE TE BLD COUNT W/DIF F mean platelet volume 12.5 fL 9.0-12 .4 high Not Available [facility] (Lab) [address] [place], [address], 11/02/2021 19:56:47 11/02/2011/02/2021 CBC/C OMPLE TE BLD COUNT W/DIF F neutrophils 54.2 % 39.0-7 2.0 Not Available [facility] (Lab) [address] [place], [address], 11/02/2021 19:56:47 11/02/20 21 11/02/2021 CBC/C OMPLE TE BLD COUNT W/DIF F lymphocytes 34.0 % 16.0-4 7.0 Not Available [facility] (Lab) [address] [place], [address], 11/02/2021 19:56:47 11/02/2011/02/2021 CBC/C OMPLE TE BLD COUNT W/DIF F monocytes 8.3 % 5.0-12 .0 Not Available [facility] (Lab) [address] [place], [address], 11/02/2021 19:56:47 11/02/20 21 11/02/2021 CBC/C OMPLE TE BLD COUNT W/DIF F eosinophils 2.6 % 1.0-7. 0 Not Available [facility] (Lab) [address] [place], [address], 11/02/2021 19:56:47 11/02/20 21 11/02/2021 CBC/C OMPLE TE BLD COUNT W/DIF F basophils 0.6 % 0.0-2. 0 Not Available [facility] (Lab) [address] [place], [address], 11/02/2021 19:56:47 11/02/20 21 11/02/2021 CBC/C OMPLE TE BLD COUNT W/DIF F immature granulocytes 0.3 % 0.00-0 .50 Not Available [facility] (Lab) [address] [place], [address], 11/02/2021 19:56:47 11/02/20 21 11/02/2021 CBC/C OMPLE TE BLD COUNT W/DIF F neutrophils, absolute count 3.94 x10'3 /uL 1.5-8. 0 Not Available [facility] (Lab) [address] [place], [address], 11/02/2021 19:56:47 11/02/20 21 11/02/2021 CBC/C OMPLE TE BLD COUNT W/DIF F lymphocytes, absolute count 2.47 x10'3 /uL 1.07-3 .43 Not Available [facility] (Lab) [address] [place], [address], 11/02/2021 19:56:47 11/02/20 21 11/02/2021 CBC/C OMPLE TE BLD COUNT W/DIF F monocytes, absolute count 0.60 x10'3 /uL 0.29-0 .99 Not Available [facility] (Lab) [address] [place], [address], 11/02/2021 19:56:47 11/02/20 21 11/02/2021 CBC/C OMPLE TE BLD COUNT W/DIF F eosinophils, absolute count 0.19 x10'3 /uL 0.02-0 .53 Not Available [facility] (Lab) [address] [place], [address], 11/02/2021 19:56:47 11/02/20 21 11/02/2021 CBC/C OMPLE TE BLD COUNT W/DIF F basophils, absolute count 0.04 x10'3 /uL 0.01-0 .08 Not Available [facility] (Lab) [address] [place], [address], 11/02/2021 19:56:47 11/02/20 21 11/02/2021 CBC/C OMPLE TE BLD COUNT W/DIF F immature granulocytes ,absolute 0.02 x10'3 /uL 0.00-0 .05 Not Available [facility] (Lab) [address] [place], [address], 11/02/2021 19:56:47 11/02/20 21 11/02/2021 CBC/C OMPLE TE BLD COUNT W/DIF F nucleated red blood cells 0.0 % -0 Not Available [facility] (Lab) [address] [place], [address], 11/02/2021 19:56:47 11/02/20 21 11/02/2021 CBC/C OMPLE TE BLD COUNT W/DIF F NRBC# 0.00 x10'3 /uL Not Available [facility] (Lab) [address] [place], [address], 11/02/2021 19:56:47 06/22/20 23 06/22/2023 BASIC METAB OLIC PANEL sodium 138 mmol/ L 137-14 5 Not Available [facility] (Lab) [address] [place], [address], 06/22/2023 19:30:24 06/22/20 23 06/22/2023 BASIC METAB OLIC PANEL potassium 3.6 mmol/ L 3.5-5. 1 Not Available [facility] (Lab) [address] [place], [address], 06/22/2023 19:30:24 06/22/20 23 06/22/2023 BASIC METAB OLIC PANEL chloride 101 mmol/ L 98-107 Not Available [facility] (Lab) [address] [place], [address], 06/22/2023 19:30:24 06/22/20 23 06/22/2023 BASIC METAB OLIC PANEL carbon dioxide 30 mmol/ L 22-30 Not Available [facility] (Lab) [address] [place], [address], 06/22/2023 19:30:24 06/22/20 23 06/22/2023 BASIC METAB OLIC PANEL anion gap 10.6 mmol/ L 14-22 low Not Available [facility] (Lab) [address] [place], [address], 06/22/2023 19:30:24 06/22/20 23 06/22/2023 BASIC METAB OLIC PANEL glucose 102 mg/dL 70-99 high Not Available [facility] (Lab) [address] [place], [address], 06/22/2023 19:30:24 06/22/20 23 06/22/2023 BASIC METAB OLIC PANEL BUN 20 mg/dL 8-19 high Not Available [facility] (Lab) [address] [place], [address], 06/22/2023 19:30:24 06/22/20 23 06/22/2023 BASIC METAB OLIC PANEL creatinine 0.87 mg/dL 0.66-1 .25 Not Available [facility] (Lab) [address] [place], [address], 06/22/2023 19:30:24 06/22/20 23 06/22/2023 BASIC METAB OLIC PANEL GFR >60 Refer ence Range : [place] ge GFR Healt hy Adult : >60 [...] calcu lator is avail able on the [facility] websi te: https ://tim w.jud justin.o rg/pr ofess ional s/kdo qi/gf r_cal culat or Not Available [facility] (Lab) [address] [place], [address], 06/22/2023 19:30:24 06/22/2006/22/2023 BASIC METAB OLIC PANEL calcium 9.3 mg/dL 8.4-10 .2 Not Available [facility] (Lab) [address] [place], [address], 06/22/2023 19:30:24 06/22/2006/22/2023 LIPID PANEL cholesterol 170 mg/dL 140-19 9 NIH LALIT NSUS RECOM MENDA TION FOR MICHAEL STERO L: ADULT CHILD LOW RISK: <200 <170 BORDE RLINE : <200- 239 ----- HIGH RISK: >240 >200 Not Available [facility] (Lab) [address] [place], [address], 06/22/2023 19:30:29 06/22/2006/22/2023 LIPID PANEL triglyceride s 131 mg/dL 0-150 NIH LALIT NSUS REPOR T RECOM MENDA TION FOR TRIGL YCERI NAIDA: ADULT CHILD LOW RISK: <150 ----- BODER LINE: 150-1 99 ----- HIGH RISK: >200 ----- Not Available [facility] (Lab) [address] [place], [address], 06/22/2023 19:30:29 06/22/2006/22/2023 LIPID PANEL HDL cholesterol 38 mg/dL 40- low Not Available [facility] (Lab) [address] [place], [address], 06/22/2023 19:30:29 06/22/20 23 06/22/2023 LIPID PANEL [...] WILL NOT BE REPOR RAH. Not Available [facility] (Lab) [address] [place], [address], 06/22/2023 19:30:29 06/22/2006/22/2023 HEPAT IC/LI NONI PANEL alkaline phosphatase 92 U/L 38-126 Not Available [facility] (Lab) [address] [place], [address], 06/22/2023 19:30:34 06/22/20 23 06/22/2023 HEPAT IC/LI NONI PANEL alanine aminotransfe rase 28 U/L 0-50 Not Available [facility] (Lab) [address] [place], [address], 06/22/2023 19:30:34 06/22/20 23 06/22/2023 HEPAT IC/LI NONI PANEL aspartate aminotransfe rase 33 U/L 15-46 Not Available [facility] (Lab) [address] [place], [address], 06/22/2023 19:30:34 06/22/20 23 06/22/2023 HEPAT IC/LI NONI PANEL bilirubin, total 0.40 mg/dL 0.20-1 .30 Not Available [facility] (Lab) [address] [place], [address], 06/22/2023 19:30:34 06/22/20 23 06/22/2023 HEPAT IC/LI NONI PANEL bilirubin, conjugated (direct) 0.00 mg/dL 0.00-0 .30 Not Available [facility] (Lab) [address] [place], [address], 06/22/2023 19:30:34 06/22/20 23 06/22/2023 HEPAT IC/LI NONI PANEL biliurubin,u ncong. (indirect) 0.30 mg/dL 0.00-1 .1 Not Available [facility] (Lab) [address] [place], [address], 06/22/2023 19:30:34 06/22/20 23 06/22/2023 HEPAT IC/LI NONI PANEL total protein 7.5 g/dL 6.3-8. 2 Not Available [facility] (Lab) [address] [place], [address], 06/22/2023 19:30:34 06/22/20 23 06/22/2023 HEPAT IC/LI NONI PANEL albumin 4.5 g/dL 3.4-5. 0 Not Available [facility] (Lab) [address] [place], [address], 06/22/2023 19:30:34 06/22/20 23 06/22/2023 HEPAT IC/LI NONI PANEL globulin 3.0 g/dL 2.6-4. 2 Not Available [facility] (Lab) [address] [place], [address], 06/22/2023 19:30:34 06/22/20 23 06/22/2023 HEPAT IC/LI NONI PANEL A/G ratio 1.5 ratio 1.0-2. 0 Not Available [facility] (Lab) [address] [place], [address], 06/22/2023 19:30:34 06/22/20 23 06/22/2023 CBC/C OMPLE TE BLD COUNT W/DIF F white blood cells 8.8 x10'3 /uL 4.2-10 .8 Not Available [facility] (Lab) [address] [place], [address], 06/22/2023 19:39:12 06/22/20 23 06/22/2023 CBC/C OMPLE TE BLD COUNT W/DIF F red blood cells 5.39 x10'6 /uL 4.10-5 .80 Not Available [facility] (Lab) [address] [place], [address], 06/22/2023 19:39:12 06/22/20 23 06/22/2023 CBC/C OMPLE TE BLD COUNT W/DIF F hemoglobin 15.5 g/dL 13.2-1 7.0 Not Available [facility] (Lab) [address] [place], [address], 06/22/2023 19:39:12 06/22/20 23 06/22/2023 CBC/C OMPLE TE BLD COUNT W/DIF F hematocrit 47.1 % 39.3-5 0.0 Not Available [facility] (Lab) [address] [place], [address], 06/22/2023 19:39:12 06/22/20 23 06/22/2023 CBC/C OMPLE TE BLD COUNT W/DIF F mean red cell volume 87.4 fL 80.0-9 7.0 Not Available [facility] (Lab) [address] [place], [address], 06/22/2023 19:39:12 06/22/20 23 06/22/2023 CBC/C OMPLE TE BLD COUNT W/DIF F mean red cell hemoglobin 28.8 pg 27.0-3 3.0 Not Available [facility] (Lab) [address] [place], [address], 06/22/2023 19:39:12 06/22/2006/22/2023 CBC/C OMPLE TE BLD COUNT W/DIF F mean RBC HGB concentratio n 32.9 g/dL 31.0-3 6.0 Not Available [facility] (Lab) [address] [place], [address], 06/22/2023 19:39:12 06/22/2006/22/2023 CBC/C OMPLE TE BLD COUNT W/DIF F red cell distribution width 12.8 % 11.8-1 5.5 Not Available [facility] (Lab) [address] [place], [address], 06/22/2023 19:39:12 06/22/2006/22/2023 CBC/C OMPLE TE BLD COUNT W/DIF F platelets 139 x10'3 /uL 150-40 0 low Not Available [facility] (Lab) [address] [place], [address], 06/22/2023 19:39:12 06/22/2006/22/2023 CBC/C OMPLE TE BLD COUNT W/DIF F mean platelet volume 12.8 fL 9.0-12 .4 high Not Available [facility] (Lab) [address] [place], [address], 06/22/2023 19:39:12 06/22/2006/22/2023 CBC/C OMPLE TE BLD COUNT W/DIF F neutrophils 54.0 % 39.0-7 2.0 Not Available [facility] (Lab) [address] [place], [address], 06/22/2023 19:39:12 06/22/2006/22/2023 CBC/C OMPLE TE BLD COUNT W/DIF F lymphocytes 36.0 % 16.0-4 7.0 Not Available [facility] (Lab) [address] [place], [address], 06/22/2023 19:39:12 06/22/2006/22/2023 CBC/C OMPLE TE BLD COUNT W/DIF F monocytes 6.9 % 5.0-12 .0 Not Available [facility] (Lab) [address] [place], [address], 06/22/2023 19:39:12 06/22/2006/22/2023 CBC/C OMPLE TE BLD COUNT W/DIF F eosinophils 2.4 % 1.0-7. 0 Not Available [facility] (Lab) [address] [place], [address], 06/22/2023 19:39:12 06/22/2006/22/2023 CBC/C OMPLE TE BLD COUNT W/DIF F basophils 0.5 % 0.0-2. 0 Not Available [facility] (Lab) [address] [place], [address], 06/22/2023 19:39:12 06/22/2006/22/2023 CBC/C OMPLE TE BLD COUNT W/DIF F immature granulocytes 0.2 % 0.00-0 .50 Not Available [facility] (Lab) [address] [place], [address], 06/22/2023 19:39:12 06/22/2006/22/2023 CBC/C OMPLE TE BLD COUNT W/DIF F neutrophils, absolute count 4.76 x10'3 /uL 1.5-8. 0 Not Available [facility] (Lab) [address] [place], [address], 06/22/2023 19:39:12 06/22/20 23 06/22/2023 CBC/C OMPLE TE BLD COUNT W/DIF F lymphocytes, absolute count 3.17 x10'3 /uL 1.07-3 .43 Not Available [facility] (Lab) [address] [place], [address], 06/22/2023 19:39:12 06/22/2006/22/2023 CBC/C OMPLE TE BLD COUNT W/DIF F monocytes, absolute count 0.61 x10'3 /uL 0.29-0 .99 Not Available [facility] (Lab) [address] [place], [address], 06/22/2023 19:39:12 06/22/2006/22/2023 CBC/C OMPLE TE BLD COUNT W/DIF F eosinophils, absolute count 0.21 x10'3 /uL 0.02-0 .53 Not Available [facility] (Lab) [address] [place], [address], 06/22/2023 19:39:12 06/22/2006/22/2023 CBC/C OMPLE TE BLD COUNT W/DIF F basophils, absolute count 0.04 x10'3 /uL 0.01-0 .08 Not Available [facility] (Lab) [address] [place], [address], 06/22/2023 19:39:12 06/22/2006/22/2023 CBC/C OMPLE TE BLD COUNT W/DIF F immature granulocytes ,absolute 0.02 x10'3 /uL 0.00-0 .05 Not Available [facility] (Lab) [address] [place], [address], 06/22/2023 19:39:12 06/22/20 23 06/22/2023 CBC/C OMPLE TE BLD COUNT W/DIF F nucleated red blood cells 0.2 % -0 high Not Available [facility] (Lab) [address] [place], [address], 06/22/2023 19:39:12 06/22/20 23 06/22/2023 CBC/C OMPLE TE BLD COUNT W/DIF F NRBC# 0.02 x10'3 /uL Not Available [facility] (Lab) [address] [place], [address], 06/22/2023 19:39:12 06/22/20 23 06/22/2023 PSA SCREE N PSA medicare screen 1.53 NG/mL 0.00-4 .00 Not Available [facility] (Lab) [address] [place], [address], 06/22/2023 20:00:23 06/22/2006/22/2023 HEMOG LOBIN A1C HA1C 5.9 % 4.0-6. 0 Diabe bobby Scree senthil Crite rissa: <5.7% Consi stent with absen ce of diabe bobby 5.7-6 .4% Consi stent with incre ased risk for diabe bobby (pred iabet es) >OR=6 .5% Consi stent with diabe bobby REFER ENCE: Diabe bobby Care 2016, 39(Stokes ppl.1 ):s13 -s22 Not Available [facility] (Lab) [address] [place], [address], 06/22/2023 20:01:12 01/16/20 22 01/14/2022 CT, coron macie calci um score No observ ation record ed. [id number] [facility] [address], [place], [address], 01/12/2023 22:45:32 08/08/20 23 rajinder nuous posit galilea airwa y press ure venti latio n (CPAP ), initi ation and manag ement (PROC ) No observ ation record ed. [email or web address] Not Available 2023 09:05:21 Result Notes None recorded. Problems Name Problem SNOMED Code Status Onset Date Resolution Date Notes Provider Name and Address Organization Details Recorded Time Hyperchole sterolemia 49418119 Completed 202002/11/2021 Not Available [facility] 3 22:44:14 Hyperlipid emia 97091948 Active 2020 Not Available [facility] 3 22:44:14 Obstructiv e sleep apnea syndrome 39393246 Active 2020 cpap Not Available [facility] 3 22:44:14 Edema of lower extremity 202930228 Active 2022 KIT Peterson [address], [place], [address] , [employer] 3 11:07:28 Obesity 076139210 Active 2022 KIT Peterson [address], [place], [address] , [employer] [facility] [employer] 3 11:09:36 Elevated blood-pres sure reading without diagnosis of hypertensi on 176848402 Active 2022 KIT Peterson [address], [place], [address] , [employer] 3 11:12:23 Adult health examinatio n Active 2022 Nasrin Polanco MD [address], [place], [address] , [employer] [facility] [employer] 3 08:45:19 Erectile dysfunctio n 192788432 Active 2022 Nasrin Polanco MD [address], [place], [address] , [facility] [employer] [facility] 3 08:56:16 Prediabete s 879864489 Active 2022 a1c 5.9 06/2023 Nasrin Polanco MD [address], [place], [address] , [facility] [employer] [facility] [employer] 3 08:00:25 Problem Notes None recorded. Procedures Surgical History Date Name Laterality Status Provider Name and Address Organization Details Recorded Time Vasectomy completed Not Available [facility] 0 01/12/2023 22:43:12 Imaging Results None recorded. Procedure Notes None recorded. Medical Equipment None [...] % 96 % 74 /min 98.1 [degF] 602542. 76 g 130 mm[Hg] 78 mm[Hg] Not Available [facility] 3 22:43:52 Date Recorded Body weight Body temperature Heart rate Oxygen saturation Oxygen saturation in Arterial blood by Pulse oximetry Systolic blood pressure Diastolic blood pressure Provider Name and Address Organization Details Last Updated DateTime 3 606483. 12 g 96 [degF] 107 /min 98 % 98 % 140 mm[Hg] 72 mm[Hg] Jesusita Asencio CMA [place] [employer] [facility] [employer] 3 10:53:10 Date Recorded Body weight Body temperature Heart rate Oxygen saturation Oxygen saturation in Arterial blood by Pulse oximetry Systolic blood pressure Diastolic blood pressure Provider Name and Address Organization Details Last Updated DateTime 3 393181. 61 g 97.6 [degF] 89 /min 97 % 97 % 138 mm[Hg] 82 mm[Hg] Tutu Gallagher RN [facility] [employer] [facility] 3 08:33:39 Date Recorded Body height Provider Name an d Address Organization Details Last Updated DateTime 11/02/2021 182.88 cm Not Available [facility] 3 22:43:52 Social History Question Answer Notes LastModified by [employer] Details LastModified Time Tobacco Smoking Status Former Smoker quit around 2016 Not Available [facility] 01/12/2023 22:43:00 Do You Have An Advance Directive? No [id number] Information not available 01/12/2023 What Is Your Level Of Caffeine Consumption? Moderate [id number] Information not available 01/12/2023 What Was The Date Of Your Most Recent Tobacco Screening? 06/22/2023 [email or web address] Information not available 06/22/2023 Do You Use Sunscreen Routinely? No [id number] Information not available 01/12/2023 Has Tobacco Cessation Counseling Been Provided? No [email or web address] Information not available 05/16/2023 Sex: Unknown Functional Status Question Answer Note LastModified by [employer] Details LastModified Time Do you or have you ever used any other forms of tobacco or nicotine? No [email or web address] Information not available 05/16/2023 What is your level of alcohol consumption? Occasional [id number] Information not available 01/12/2023 Mental Status None recorded. Family History Relationship Description Onset Age of this Age Resolved Age Notes LastModified by Organization Details LastModified Time Sister Heart murmur [id number] Not available 01/12/2023 22:43:14 Father Polyp of colon [id number] Not available 01/12/2023 22:43:14 Father Peripheral vascular disease [id number] Not available 01/12/2023 22:43:14 Paternal Uncle Malignant tumor of colon [email or web address] Not available 2022 08:38:11 Medical History Condition Response BLINDNESS N RHEUMATIC FEVER N KIDNEY STONES N BLADDER PROBLEMS N MRSA N OTHER # 1 N POLIO N LUNG DISEASE/DISORDER N COPD N RADIATION / CHEMOTHERAPY N Other # 2 N BLOOD DISEASES N SURGERY N EAR OR HEARING PROBLEMS N MUMPS N BOWEL PROBLEMS N FEMALE PROBLEMS / INFECTIONS N DEPRESSION (INCLUDING POST ) N STROKE/TIA N THYROID DISEASE N ULCERS N BENIGN PROSTATIC HYPERPLASIA N MEASLES N CERVICALGIA N TB SKIN TEST N MYOCARDIAL INFARCTION N OBESITY N PARAPELGIA N GERD/NAUSEA N ANEURYSM N URINARY/BLADDER/KIDNEY PROBLEMS [...] HAVE YOU BEEN HOSPITALIZED OR SEEN IN [facility] IN THE PAST YEAR ? N ATHEROSCLEROSIS [...] mcg/0.3 mL dose 01/02/2021 completed Not Available [facility] 22:45:18 COVID-19, mRNA, LNP-S, PF, 100 mcg/0.5mL dose or 50 mcg/0.25mL dose 12/05/2020 completed Not Available [facility] 3 22:45:18 Past Encounters Encounter ID Performer Location Encounter Start Date Encounter Closed Date Diagnosis/Indication Diagnosis SNOMED-CT Code Diagnosis ICD10 Code Diagnosis Note [id number] Nasrin Polanco MD [facility] [place] [address] [facility] [address] [place] [address] 02/11/2021 00:00:00 02/11/2021 13:39:21 [id number] Nasrin Polanco MD [facility] Primary [facility] [place] [address] [facility] [address] [place] [address] 03/12/2021 00:00:00 03/13/2021 12:30:39 [id number] Nasrin Polanco MD [facility] Primary [facility] [place] [address] [facility] [address] [place] [address] 11/02/2021 00:00:00 11/02/2021 12:33:21 [id number] Nasrin Poalnco MD [facility] Primary [facility] [place] [address] [place] [address] [address] [place] [address] 05/16/2023 10:46:00 05/16/2023 11:12:01 Hyperlipidemia 35773779 E78.5 G47.33 Will get labs at annual in 4 weeks.Cont inue simvastati n 40mg daily. Edema of l ower extremity 540535826 R60.0 Stable.Con tinue HCTZ 12.5mg daily. Obesity 800886551 E66.9 Pt. inquiring about phentermin e.HR/BP is slightly elevated in office today.Will recheck vitals at visit in 4 weeks and re-discuss at that time as I have advised we need to monitor these vitals closely if planning to start stimulant. Elevated blood-pressure reading without diagnosis of hypertension [id number] R03.0 Will monitor. Recheck in 4 weeks. [id number] Nasrin Polanco MD [facility] [place] [facility] [address] [facility] [address] [place] [address] 06/22/2023 08:29:00 06/22/2023 10:55:42 Adult health examination [id number] Z00.00 Z13.1 R73.9 Remain nonsmokerF quita vaccine yearlyCovi d booster this fallTdap 2027Shingr ix vaccine seriesColo noscopy referral given Screening for malignant neoplasm of prostate [id number] Z12.5 Hyperlipidemia 09854020 E78.5 Z79.899 Edema of l ower extremity [id number] R60.0 Screening for malignant neoplasm of colon 713882101 Z12.11 Dietary ma nagement surveillance [id number] Z71.3 Discussed healthy diet/exerc iseReviewe d potential med s/e, d/c and be seen if any chest pain, sobPt understand s this medication has risk for abuse/depe ndence and agrees to take it only as prescribed and to guard from loss/theft f/u in 4 weeks or sooner if needed Erectile dysfunction [id number] F52.21 reviewed potential med s/e and how to use properly Obstructiv e sleep apnea syndrome [id number] G47.33 uses cpap nightly as prescribed with improvemen t in snoring and daytime somnolence Health Concerns Section Related Observation LastModified by Organization Detai ls LastModified Time None Recorded Concern Status LastModified by Organization Details LastModified Time None Recorded Advance Directives Directive N: Payers Encounter Date Sequence Insurance Name Policy Number Policy Plata Covered Member ID Plata Member ID Guarantor Name 05/16/2023 1 YORDAN-JASIEL (PPO) [id number] Mayur Munguia [id number] Mayur Munguia 06/22/2023 1 [employer]ORD[employer]JASIEL ([employer]) [id number] Mayur Munguia [id number] Mayur Munguia Notes Date Note Type Note Provider Name and Address Organization Details Recorded Time 05/16/2023 text/html Pt. states he needs medication refills.He started getting sinus pressure on his left side yesterday. He has taken mucinex. [facility] [address], [place], [address], [employer] 05/16/2023 11:12:57 06/22/2023 text/html Here for [facility] exam. Would like to try medication for erections, they are softer than he would like. Would like to try medication for weight loss, is on phentermine. Nasrin Polanco MD [address], [place], [address], [employer] 08/09/2023 15:21:38
== END 2025-04-11 12:49 | disposition home or self-care (01) ==
LOC: ANHGOSHLAB 12:49
PROVIDERS: PCP Family Medicine; Visit Provider Family Medicine
DX: G25.81 Restless legs syndrome (principal)
CPT/HCPCS: 36415; 82728

== ENCOUNTER 2025-09-05 10:08 | Outpatient (CLI) | payer BC, SELFPAY ==
--- OUTSIDE RECORDS SUMMARY | 2025-09-05 11:04 | XMS_ITS | Clinical Summary ---
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 Last Filed Vital Signs Vital Sign Reading [...] 12:29 PM CDT Height 177.8 cm (5' 10) 05/05/2018 12:29 PM CDT Body Mass Index [...] of 2) 2018 COVID-19 Vaccine (3 - 2024-2 6 season) 2025 01/02/2021, 01/02/2021, 12/05/2020 Influenza Adult (#1) 2025 08/27/2020 DTaP, Tdap and Td Vaccines ( 2 - Td or Tdap) 05/05/2028 05/05/2018 Hepatitis A Vaccines Aged Out No long er eligible based on patient's age to complete this topic Meningococcal B Vaccine Aged Out No l onger eligible based on patient's age to complete this topic Meningococcal Vaccine Aged Out No naun bharati eligible based on patient's age to complete this topic RSV Immunizations Under 20 Months Aged Out No longer eligible b ased on patient's age to complete this topic Insurance Care Teams Kettle Loader Relationship Specialty Start Date End Date Nasrin Polanco MD [address] [place] [address] [place] [id number] PCP - General FAMILY PRACTICE 12/16/21
[2025-09-05 22:42] LABS: Alanine Aminotransferase 25 U/L (6-50); Albumin Level 4.3 g/dL (3.5-5.1); Alkaline Phosphatase 85 U/L (38-126); Anion Gap 9 mmol/L (4-12); Aspartate Amino Transferase 47 U/L (17-59); Bilirubin,Total 0.5 mg/dL (0.2-1.3); Blood Urea Nitrogen 25 mg/dL (9-20); Calcium 9.2 mg/dL (8.4-10.2); Carbon Dioxide 26 mmol/L (22-30); Chloride 105 mmol/L (98-107); Cholesterol 185 mg/dL (0-200); Estimated Glomerular Filt Rate > 60; Glucose 84 mg/dL (65-110); HDL Direct 46 mg/dL; Potassium 4.4 mmol/L (3.4-5.0); Sodium 140 mmol/L (137-145); Total Protein 7.5 g/dL (6.3-8.2); Triglycerides 76 mg/dL (<150)
[2025-09-05 23:11] LABS: Prostate Specific Antigen 2.8 ng/mL (< OR = 4.0)
== END 2025-09-05 10:09 | disposition home or self-care (01) ==
LOC: ANHGOSHLAB 10:08
PROVIDERS: PCP Family Medicine; Visit Provider Family Medicine
DX: E78.5 Hyperlipidemia, unspecified (principal); R93.1 Abnormal findings on diagnostic imaging of heart and coronary circulation; R74.8 Abnormal levels of other serum enzymes
CPT/HCPCS: 36415; 80053; 80061; 84153; G0103